=== PATIENT | male | born 1990 | race Caucasian/White ===

== ENCOUNTER 2020-12-28 20:05 | Inpatient (IN) | payer BC ==
[2020-12-28] MEDS ORDERED: SODIUM CHLORIDE 0.9% 1,000 ML IV STA (20:22)
--- NOTE | 2020-12-28 20:22 | ED ---
Neuro HPI - General Chief Complaint: Neuro Symptoms/Deficit Stated Complaint: Confusion,Slurred Speech Time Seen by Provider: 12/28/20 20:21 Source: patient Mode of arrival: ambulatory Limitations: no limitations - History of Present Illness Is the patient presenting with stroke symptoms?: Yes Last Known Well Date: 12/27/20 Onset/Timin -: days(s) Initial Comments: Tomy is a 30-year-old male who presents the ER today via private vehicle for evaluation of confusion and speech difficulty. Patient reports that yesterday evening he was smoking marijuana which is typical for him, his marijuana that he buys from a dispensary it's actually a vague pain according to his . He began to feel very lightheaded and off. He felt very confused and scared didn't know was going on he lay down to sleep. He didn't feel well this morning he still felt like something was off so he did not go to work. 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 His symptoms didn't improve throughout the day so this evening his convinced him to go to urgent care where he was evaluated and advised that he needed to come to the hospital for further workup. Location: speech Associated Symptoms: confusion - Related Data Home Medications: Home Medications Medication Instructions Recorded Confirmed No Known Home Medications 12/28/20 12/28/20 Allergies/Adverse Reactions: Allergies Allergy/AdvReac Type Severity Reaction Status Date / Time No Known Allergies Allergy Verified 12/28/20 21:44 Review of Systems ROS Statement: Those systems with pertinent positive or pertinent negative responses have been documented in the HPI. ROS Other: All systems not noted in ROS Statement are negative. General Exam - General Exam Comments Initial Comments: Physical Exam GENERAL: Patient is well-developed and well-nourished. HENT: Normocephalic, Atraumatic. EYES: PERRL, EOMI PULMONARY: Unlabored respirations. No audible rales rhonchi or wheezing was noted. CARDIOVASCULAR: There is a regular rate and rhythm without any murmurs gallops or rubs. ABDOMEN: Soft and nontender with normal bowel sounds. SKIN: Skin is clear with no lesions or rashes and otherwise unremarkable. : Deferred NEUROLOGIC: Patient is alert and oriented x3. Patient able to state his full name, date and identify what hospital he is Cranial nerves II through XII are grossly intact Patient occasionally has delayed responses, he appears confused, frequently begins crying and appears frustrated Moving all extremities spontaneously MUSCULOSKELETAL: Normal extremities with adequate strength and full range of motion. No lower extremity swelling or edema. No calf tenderness. PSYCHIATRIC: Tearful Limitations: no limitations Stroke MDM - NIH Stroke Scale 1a. Level of Consciousness: (0) alert 1b. LOC Questions: (0) answers correctly 1c. LOC Commands: (0) performs tasks correctly 2. Best Gaze: (0) normal 3. Visual: (0) no visual loss 4. Facial Palsy: (0) normal symmetrical movement 5a. Motor Arm Left: (0) no drift 5b. Motor Arm Right: (0) no drift 6a. Motor Leg Left: (0) no drift 6b. Motor Leg Right: (0) no drift 7. Limb Ataxia: (0) absent 8. Sensory: (0) normal 9. Best Language: (0) no aphasia 10. Dysarthria: (0) normal 11. Extinction/Inattention: (0) no abnormality - Thrombolytic Inclusion/Exclusion Thrombolytic Exclusion Criteria: Symptom Onset > 4.5 Hours - Medical Decision Making Tomy is a 30-year-old male who presents to the ER today via private vehicle for evaluation of confusion not feeling right feeling lightheaded and off. Began yesterday. Patient reports it began in the evening after smoking marijuana however his mom reports that she felt he was feeling this way when she saw him at 4:30 PM yesterday. Patient's initial NIH is 0. He does sound as though he has a list at times but at times his speech is completely clear. All assessment of his speech is limited by the fact the patient continuously begins crying and is quite upset and emotional periods very clearly scared that he is here. Workup was initiated however symptoms of present for a minimum of 24 hours therefore culture was not activated Head CT is concerning for acute left-sided basal ganglia ischemic event, these results were discussed with neurologist Dr. Hampton who recommends aspirin admission CTA, MRI and echo Patient care was discussed with Dr. Cormier of [facility] who accepts the admission Past Medical History Past Medical History: No Reported History Past Surgical History: No Surgical Hx Reported Smoking Status: Never smoker Past Alcohol Use History: None Reported Past Drug Use History: Marijuana Course Vital Signs 12/28/20 12/28/20 12/28/20 20:10 20:30 21:00 Temperature 98.8 F Pulse Rate 91 98 89 Respiratory 19 18 18 Rate Blood Pressure 126/78 133/80 135/75 O2 Sat by Pulse 98 99 98 Oximetry 12/28/20 12/28/20 21:10 22:00 Temperature Pulse Rate 80 95 Respiratory 18 18 Rate Blood Pressure 133/77 125/87 O2 Sat by Pulse 98 99 Oximetry Critical Care Time Critical Care Time: Yes Total Critical Care Time: 30 Critical Care Time: Critical Care Time Critical care time was exclusive of separately billable procedures and treating other patients and teaching time. Critical care was necessary to treat or prevent imminent or life-threatening deterioration. Given the critical condition in which the patient arrived, the patient was immed iately assessed by myself and the nurse, and cardiac monitoring initiated due to the potential for rapid decompensation of the patient's clinical condition. During the course of the patients stay, I spent a considerable amount of time at the bedside performing serial re-evaluations of the patient's hemodynamic and clinical status because of the recognized potential threat to life or limb in this condition. I then had a chance to review not only all of the available current laboratory and radiographic studies obtained today, but I also reviewed old records available to me at the time. Additionally, any ancillary information available including outreach professional records were reviewed. Sequential vital signs were obtained. Disposition Clinical Impression: Acute stroke of basal ganglia Disposition: ADMITTED IP TO THIS HOSP Condition: Serious Is patient prescribed a controlled substance at d/c from ED?: No
--- NOTE | 2020-12-28 21:11 | CT ---
EXAMINATION TYPE: CT brain wo con DATE OF EXAM: 12/28/2020 COMPARISON: None INDICATION: CONFUSION AND NEURO DEFICIT DLP: 1102.4 mGycm, Automated exposure control for dose reduction was used. CONTRAST: None CT of the brain is performed utilizing 3 mm thick sections through the posterior fossa and 3 mm thick sections through the remaining calvarium. Study is performed within 24 hours of arrival to the hosp ital. No abnormal hyperdensity is present to suggest an acute intracranial hemorrhage. No mass lesion is evident. There is ill-defined hypodensity within the left basal ganglion. An acute ischemic area may be presen t. Consider follow-up with MRI. There is some subtle hypodensity within the left parietal occipital j unction which could be some ischemic change as well., Series 2021, image 31. Ventricles and sulci are appropriate for the patient age. Paranasal sinuses and mastoid air cells within the [id number] are clear. IMPRESSIONS: 1. Suspected acute ischemic change within the left basal ganglion. Consider follow-up with MRI. Rep ort was called to the emergency room Physician Dr Castanon by Dr. Sánchez by telephone at the time of interpretation 2105 hours 12/28/2020.
--- NOTE | 2020-12-28 21:13 | XR ---
EXAMINATION TYPE: XR chest 2V DATE OF EXAM: 12/28/2020 COMPARISON: None INDICATION: Altered mental status TECHNIQUE: Frontal and lateral views of the chest are obtained. FINDINGS: The heart size is normal. The pulmonary vasculature is normal. The lungs are clear. IMPRESSION: 1. No acute pulmonary process.
[2020-12-28] MEDS ORDERED: ASPIRIN 81 MG PO STA (21:23)
[2020-12-28] MEDS ORDERED: CLOPIDOGREL 75 MG TAB PO STA (21:23)
[2020-12-28] MEDS ORDERED: NALOXONE 0.4 MG/ML 1 ML VIAL IV PRN (22:02)
--- NOTE | 2020-12-29 00:46 | CT ---
EXAMINATION TYPE: CODE STROKE: CTA head neck DATE OF EXAM: 12/29/2020 COMPARISON: None HISTORY: acute stroke CT DLP: 926.3 mGycm Automated exposure control for dose reduction was used. CONTRAST: Performed with IV Contrast, patient injected with 65 mL of Isovue 370. Images obtained from the aortic arch to the vertex of the brain with IV contrast. There are 3-D post processed images. There is normal branching pattern of the great vessels on the aortic arch. There is bilateral arteria l flow in the subclavian arteries. Thyroid gland appears normal. There is arterial flow in the common internal and external carotid arteries bilaterally. There is wide patency of the carotid artery bifu rcations. There is wide patency of the vertebral arteries. There is no evidence of carotid or vertebr al artery aneurysm or dissection. There is arterial flow in the vertebrobasilar artery system. There is arterial flow in the anterior m iddle and posterior cerebral arteries. There is no evidence of intracranial aneurysm or neovascularit y. There is subtotal occlusion of the proximal left middle cerebral artery seen on image 17 of series 405. There is distal arterial flow in the branches of the left middle cerebral artery. This patient had head CT scan earlier today that shows 3 x 1.5 cm area of hypodensity in the left internal capsule consistent with acute infarct. IMPRESSION: Negative CT angiogram of the neck. There is subtotal occlusion and thrombosis of the proximal left middle cerebral artery. This appears to account for the evidence of acute infarct in the white matter left cerebral hemisphere.
--- NOTE | 2020-12-29 03:24 | P.HPIM ---
History of Present Illness H&P Date: 12/28/20 Chief Complaint: confusion 30 year old male with no significant past medical history patient comes in due to increase confusion , and speech difficulty off/on, patient did not look his normal self , and his was growing suspicious and decided to bring him in for evaluation . all started yesterday in the evening per his mother, when he seemed odd to them but they could not put a finger on it. at night yesterday , he smoked marijuana as he normally does most of the nights, and then was oddly increasingly sleepy and tired, for which he decided to go lay down. 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 eventually after he returned home, he was noted to be absent minded and acting confused wtih some word slurring and not making sense with unusual behavior, for which he was brought in for evaluation in the ED, CT of the head was performed and showed acute left sided ischemic stroke of basal ganglia. neurology notified and suggested to get MRI, CTA of head and neck and stroke workup, however, symptoms over 24 hours, and coded stroke was not activated. in the ED, patient was emotional with crying episodes. he did not complain of any weakness. during my interview he felt fine, but overwhelmed emotionally . he otherwise denies any focal deficits. he denies any medical problems in the past. he denies tobacco smokiing, or regular alcohol intake, he denies any illicit drugs, other than marijuana CTA of head and neck done after midnight, I paged neurology to go over results, which report showed subtotal occlusion and thrombosis of the proximal left middle cerebral artery, which accounts for the evidence of acute infarct in the white matter left cerebral hemisphere. patient otherwise claims to be in good health, never experienced anything similar, does not take any prescription medications, has never been diagnosed with any chronic medical condition Review of Systems Pertinent positives as noted in HPI. All other systems were reviewed and are negative Past Medical History Past Medical History: No Reported History Past Surgical History: No Surgical Hx Reported Smoking Status: Never smoker Past Alcohol Use History: None Reported Past Drug Use History: Marijuana - Past Family History Family Family Medical History: CVA/TIA Medications and Allergies Home Medications Medication Instructions Recorded Confirmed Type No Known Home Medications 12/28/20 12/28/20 History Allergies Allergy/AdvReac Type Severity Reaction Status Date / Time No Known Allergies Allergy Verified 12/28/20 21:44 Physical Exam Vitals: Vital Signs Temp Pulse Resp BP Pulse Ox 12/28/20 20:10 98.8 F 91 19 126/78 98 Intake and Output 12/28/20 12/28/20 12/28/20 06:59 14:59 22:59 Other: Weight 111.13 kg Constitutional: No acute distress, conversant, pleasant Eyes: Anicteric sclerae, moist conjunctiva, Pupils equal round reactive to light ENMT: NC/AT Oropharynx clear, no erythema, or exudates Neck: Supple, FROM, no masses, or JVD No carotid bruits No thyromegaly Lungs: Clear to auscultation Clear to percussion Normal respiratory effort, no accessory muscle use Cardiovascular: Heart regular in rate and rhythm, No murmurs, gallops, or rubs No peripheral edema Abdominal: Soft Nontender, no guarding, rebound or rigidity Abdomen moving with respiration Normoactive bowel sounds No hepatomegaly, No splenomegaly No palpable mass No abdominal wall hernia noted Skin: Normal temperature, tone, texture, turgor No induration No subcutaneous nodules No rash, lesions No ulcers Extremities: No digital cyanosis No clubbing Pedal pulses intact and symmetrical Radial pulses intact and symmetrical No calf tenderness Psychiatric: Alert and oriented to person, place and time Appropriate affect fair judgement Neuro Muscles Strength 5/5 in all 4 extremities Sensation to light touch grossly present throughout Cranial nerves II-XII grossly intact No focal sensory deficits Lymphatics: no palpable cervical or supraclavicular , or inguinal lymph nodes Assessment and Plan Assessment: Subacute Ischemic stroke of the left basal ganglia Neurology notified Follow-up MRI, CT angiogram head and neck Check lipid profile, thyroid function Check echocardiogram CT angiogram of the head and neck showed subtotal occlusion and thrombosis of the proximal left middle cerebral artery which appears to account for the ev idence of acute infarct in the white matter left cerebral hemisphere, paged neurology to discuss findings await callback Neurochecks Consult to physical therapy Monitor vital signs Aspirin and statin patient was given Plavix in the ED CODE STATUS: Full code DVT prophylaxis: Mechanical Discussed with: Patient, ER, RN Anticipated length of stay less than than [address]: Home A total of 65 minutes was spent on the care of this complex patient more than 50% of the time was spent in counseling and care coordination.
[2020-12-29] MEDS ORDERED: CLOPIDOGREL 75 MG TAB PO STA (03:30)
[2020-12-29] MEDS ORDERED: SODIUM CHLORIDE 0.9% 1,000 ML IV ONE (03:31)
[2020-12-29] MEDS: SODIUM CHLORIDE 0.9% 1,000 ML IV SCH ×3 (06:22→23:53)
[2020-12-29 07:30] LABS: Basophils % (A) 0 %; Eosinophils % (A) 1 %; HGB 12.1 gm/dL (13.0-17.5); Lymphocytes % (A) 21 %; MCH 32.6 pg (25.0-35.0); MCHC 34.5 g/dL (31.0-37.0); MCV 94.7 fL (80.0-100.0); Mean Platelet Volume 7.2; Monocytes # (A) 0.3 k/uL (0-1.0); Monocytes % (A) 7 %; Neutrophils # (A) 3.3 k/uL (1.3-7.7); Neutrophils % (A) 70 %; Platelet Count 218 k/uL (150-450); RDW 12.8 % (11.5-15.5); WBC 4.7 k/uL (3.8-10.6)
[2020-12-29 07:41] LABS: Partial Thromboplastin Time 24.4 sec (22.0-30.0); Prothrombin Time 10.7 sec (9.0-12.0)
[2020-12-29 08:32] LABS: Appearance,Urine Clear (Clear); Bilirubin,Urine Negative (Negative); Blood,Urine Negative (Negative); Color,Urine Yellow; Glucose,Urine (UA) Negative (Negative); Ketones,Urine Negative (Negative); Leukocyte Esterase,Urine Negative (Negative); Nitrite,Urine Negative (Negative); PH, Urine 6.5 (5.0-8.0); Protein,Urine Negative (Negative); Specific Gravity,Urine 1.022 (1.001-1.035); Urobilinogen,Urine <2.0 mg/dL (<2.0)
[2020-12-29 08:44] LABS: Urn Cannabinoid Scrn Detected (NotDetected)
[2020-12-29 08:45] LABS: Amphetamine Screen,Urine Detected (NotDetected); Barbiturate Screen,Urine Not Detected (NotDetected); Benzodiazepines Screen,Urine Not Detected (NotDetected); Cocaine Screen,Urine Not Detected (NotDetected); Methadone Screen, Urine Not Detected (NotDetected); Opiate Screen,Urine Not Detected (NotDetected); Oxycodone Screen, Urine Not Detected (NotDetected); Phencyclidine Screen,Urine Not Detected (NotDetected); Tricyclic Antidepressant,Urine Not Detected (NotDetected)
[2020-12-29] MEDS ORDERED: ATORVASTATIN 40 MG TAB PO SCH (09:00)
--- NOTE | 2020-12-29 10:00 | ECHOF ---
Referral Reason:acute stroke MEASUREMENTS -------- HEIGHT: 182.9 cm WEIGHT: 111.1 kg BP: 112/63 RVIDd: 3.6 cm (< 3.3) IVSd: 1.1 cm (0.6 - 1.1) LVIDd: 5.0 cm (3.9 - 5.3) LVPWd: 1.1 cm (0.6 - 1.1) IVSs: 1.4 cm LVIDs: 3.3 cm LVPWs: 1.9 cm LA Diam: 3.6 cm (2.7 - 3.8) LAESV Index (A-L): 21.39 ml/m Ao Diam: 3.5 cm (2.0 - 3.7) AV Cusp: 2.5 cm (1.5 - 2.6) MV EXCURSION: 17.701 mm (> 18.000) MV EF SLOPE: 134 mm/s (70 - 150) EPSS: 0.3 cm MV E Oj: 0.93 m/s MV DecT: 234 ms MV A Oj: 0.65 m/s MV E/A Ratio: 1.42 RAP: 5.00 mmHg RVSP: 20.59 mmHg FINDINGS -------- Sinus rhythm. This was a technically adequate study. The left ventricular size is normal. There is borderline concentric left ventricular hypertrophy. Overall left ventricular systolic function is normal with, an EF between 60 - 65 %. The right ventricle is mildly enlarged. Normal LA size by volume 22+/-6 ml/m2. The right atrium is normal in size. Interatrial and interventricular septum intact. The aortic valve is trileaflet, and appears structurally normal. No aortic stenosis or regurgitation. The mitral valve is normal. Trace tricuspid regurgitation present. Right ventricular systolic pressure is normal at < 35 mmHg. Trace/mild (physiologic) pulmonic regurgitation. The aortic root size is normal. Normal inferior vena cava with normal inspiratory collapse consistent with estimated right atrial pre ssure of 5 mmHg. There is no pericardial effusion. CONCLUSIONS -------- 1. The left ventricular size is normal. 2. There is borderline concentric left ventricular hypertrophy. 3. Overall left ventricular systolic function is normal with, an EF between 60 - 65 %. 4. The right ventricle is mildly enlarged. 5. The aortic valve is trileaflet, and appears structurally normal. No aortic stenosis or regurgitati on. 6. Trace tricuspid regurgitation present. 7. Trace/mild (physiologic) pulmonic regurgitation. 8. There is no pericardial effusion. WORKERS' COMPENSATION CLAIMS EXAMINER: Miley Gil RDCS
[2020-12-29 10:54] LABS: ALT 46 U/L (4-49); AST 31 U/L (17-59); African American GFR (CKD) >90 (>60 ml/min/1.73 sqM); Albumin 4.3 g/dL (3.5-5.0); Alkaline Phosphatase 67 U/L (38-126); Anion Gap 6 mmol/L; Blood Urea Nitrogen 11 mg/dL (9-20); Calcium 9.5 mg/dL (8.4-10.2); Carbon Dioxide 27 mmol/L (22-30); Chloride 105 mmol/L (98-107); Glucose 116 mg/dL (74-99); Non-African American GFR(CKD) >90 (>60 ml/min/1.73 sqM); Potassium 4.3 mmol/L (3.5-5.1); Sodium 138 mmol/L (137-145); Total Bilirubin 1.4 mg/dL (0.2-1.3)
[2020-12-29] MEDS: CLOPIDOGREL 75 MG TAB PO SCH (11:21)
[2020-12-29] MEDS: ASPIRIN 81 MG PO SCH (11:21)
--- NOTE | 2020-12-29 11:55 | P.CNNES ---
History of Present Illness Consult date: 12/29/20 Requesting physician: Gifty Castanon Reason for Consult: Acute stroke History of Present Illness: Patient is a 30-year-old right-hand dominant male came to the hospital yesterday at 8:05 PM, for evaluation of speech difficulty and possible stroke. Patient's symptoms started on the night prior on Friday night at 8:30 PM, when he felt ill, what he described as feeling weird. Patient thought that he may have smoked too much of marijuana therefore did not pay much attention. He went to sleep at night. At 4 AM he called his that he was locked out of his house which was unusual for him. Later during the day he was playing with his son and outside, but did not feel fine. He denied any problem with vision, headache, any numbness tingling weakness facial droopiness. He did notice that he was having trouble with the right hand while texting as compared to the left. There was no slurred speech. Late afternoon patient apparently broke up in tears, stating that he was having hard time talking. Patient's took him to urgent care at around 6 PM, where patient was noticed to be confused. Patient's was sitting outside in the lobby, and when he spoke to the physician, he did not know why he came to the urgent care. He states that he came for UTI, then states came for "Lux", which made no sense. He was recommended to go to the ER. In the ER patient was having difficulty finding the words at times. Patient's vitals on arrival blood pressure 126/78, pulse rate 91, temperature 98.8. Blood test shows normal WBC hemoglobin 12.1, platelets 218. PT/PTT, troponin normal. UA negative, urine drug screen positive for amphetamines and marijuana. Avila virus PCR negative. CT head showed suspected acute ischemic change within the left basal ganglion. Consider follow-up with MRI. Chest x- ray showed no acute process. EKG shows normal sinus rhythm, right axis deviatio n. Patient's NIH stroke scale in the ER was 0. ED staff discussed case with me. Patient was not a candidate for TPA, as his symptoms have been present for over 24 hours. CTA of head and neck was recommended. Aspirin and Plavix were recommended. CTA of the head and neck was performed shortly after midnight. It revealed subtotal occlusion and thrombosis of the proximal left middle cerebral artery. This appears to account for the evidence of acute infarct in the white matter left cerebral hemisphere. I was informed about report of CTA early this morning by Dr Freeman. Recommended to speak to neuro intervention if patient would be a candidate for thrombectomy. Apparently it was already discussed with neuro intervention and he was not considered a candidate for thrombectomy because of low NIH stroke scale. I suggested to further load with Plavix for total of 300 mg. Start normal saline at 100 mL per hour. Do not treat blood pressure, unless > 210/110. Also recommended neuro checks every 1 hour for the next 6 hours. This morning patient was seen along with his . She says that his speech has much improved. He is more fluent, does not have to think about the words. She feels that he still sometimes speaks slightly off. Patient denies hypertension diabetes or cholesterol issues. He does not take any medication at home. He does not smoke cigarettes. He smokes marijuana about 2 puffs every night. He sometimes uses Adderall 20 mg tablets, 3 of them together, which he gets from some friends prescription. He does not do any other drugs. Uses alcohol occasionally. Patient states that his maternal grandmother had strokes. Patient denies any recent head or neck injury the last 6 months. 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 Review of Systems As above in detail. Denies any chest pain shortness of breath wheezing or cough. Denies any double vision or loss of vision hoarseness, sore throat, dysphagia. No numbness tingling focal weakness. No problem with urination. He does have depression, stress a lot, since his [id number] committed suicide. Patient is very emotional at this time. Past Medical History Past Medical History: No Reported History Past Surgical History: No Surgical Hx Reported Smoking Status: Never smoker Past Alcohol Use History: None Reported Past Drug Use History: Marijuana - Past Family History Family Family Medical History: CVA/TIA Medications and Allergies Home Medications Medication Instructions Recorded Confirmed Type No Known Home Medications 12/28/20 12/28/20 History Allergies Allergy/AdvReac Type Severity Reaction Status Date / Time No Known Allergies Allergy Verified 12/28/20 21:44 Physical Examination - Vital Signs Vital Signs: Vital Signs Temp Pulse Resp BP Pulse Ox 12/29/20 07:34 98.3 F 82 18 127/75 99 12/29/20 06:28 98.2 F 69 18 112/63 98 12/29/20 05:30 71 18 98 12/29/20 03:45 98.0 F 61 18 129/74 99 12/29/20 02:00 76 18 99 12/29/20 00:58 86 18 120/64 98 12/29/20 00:00 83 18 98 12/28/20 23:00 86 18 116/76 98 12/28/20 22:00 95 18 125/87 99 12/28/20 21:10 80 18 133/77 98 12/28/20 21:00 89 18 135/75 98 12/28/20 20:30 98 18 133/80 99 12/28/20 20:10 98.8 F 91 19 126/78 98 Intake and Output 12/28/20 12/29/20 12/29/20 22:59 06:59 14:59 Other: # Voids 1 Weight 111.13 kg Patient is a young male, in no acute distress. He does have a slight flat affect. Appears somewhat stressed, and frequently gets emotional and cries and started sobbing. Patient is alert awake oriented to time place and person. Speech is mildly dysarthric and language functions are normal. He can name 4/4 objects presented, could repeat long sentences without hesitancy. He was able to read without difficulty. He was able to write at his baseline handwriting. He can calculate 100-7 and then 93-7 correctly. No finger agnosia. Attention, concentration and fund of knowledge is adequate. On cranial examination, pupils are round and reacting to light, visual ha are full on confrontation, with no neglect on double simultaneous stimulation. His extraocular muscles are intact with no nystagmus. Patient has very mild flattening of the right nasolabial fold, his tongue protrudes to the midline. Palatal elevation and sensation normal, hearing and shoulder shrug normal, facial sensation normal. Shoulder shrug normal. On muscle strength testing, there is no pronator drift and the strength is normal in arms and legs distally and proximally. Deep tendon reflexes are 2+ all over and plantars downgoing bilaterally. Sensory to touch is equal with no neglect on double simultaneous stimulation. Cerebellar function showed no ataxia for [id number] testing. No dysdiadochokinesia. Tone and bulk of muscles normal. Finger tapping appears equal bilaterally. Gait normal. On general examination, there is no carotid bruit or murmur, S1-S2 audible. Abdomen is soft nontender. Chest is clear. Peripheral pulses are present. No edema. Results - Laboratory Findings CBC and BMP: 12/29/20 07:00 12/29/20 10:21 Abnormal Lab Findings: Abnormal Labs 12/28/20 12/29/20 20:22 07:00 RBC 3.70 L Hgb 12.1 L Hct 35.0 L Ur Amphetamines Screen Detected H U Marijuana (THC) Screen Detected H Assessment and Plan Assessment: * Acute ischemic stroke involving left basal ganglia. CTA of the head revealed subtotal occlusion and thrombus in the left M1 segment. Patient's current NIH stroke scale is 2. Mechanism of stroke appears embolic, but no source identified yet. * Marijuana use, urine positive for amphetamines. Patient takes Adderall for recreational use sometimes. Uncertain if contributing to the stroke. Plan: * MRI of the brain to evaluate for acute stroke, MRA of the head to follow-up on the left MCA thrombus. * Do not treat blood pressure. His blood pressure has been running in the normal range. * Patient has received 225 mg of Plavix loading dose, and aspirin. Continue aspirin 81 mg and Plavix 75 mg. * Continue high-dose statins, with Lipitor 80 mg. * 2-D echo revealed normal left-ventricular size, borderline concentric LVH. EF is 60-65%. * Suggest cardiology consultation for EEG to rule out embolic source. * We will check hypercoagulable workup. * Case discussed with Dr. Matute. No indication for thrombectomy, as patient is doing well. * Continue neuro checks every 2 hours. * Telemetric monitoring showing normal sinus rhythm, bundle branch block. No arrhythmia. * Recommend abstain from marijuana and use of Adderall. * Dr. Monteiro Will resume neurology service in the morning. Time with Patient: Greater than 30
[2020-12-29] MEDS: ATORVASTATIN 80 MG TAB PO SCH (12:41)
--- NOTE | 2020-12-29 14:56 | P.PN ---
Subjective Progress Note Date: 12/29/20 Pt admitted for subacute ischemic stroke overnight. Case discussed between Neurology and Neuro-interventional, no indication for thrombectomy due to patient's low NIHSS score. Pt still has some slurring speech today, but otherwise, is 5/5 motor strength throughout. Pt is anxious and emotionally labile. Methamphetamine use was discussed and patient was counseled on cessation/use discouraged. Objective - Vital Signs Vital signs: Vital Signs Temp 98.8 F 12/29/20 12:00 Pulse 77 12/29/20 12:00 Resp 18 12/29/20 12:00 BP 131/72 12/29/20 12:00 Pulse Ox 97 12/29/20 12:00 Intake & Output 12/28/20 12/29/20 12/29/20 18:59 06:59 18:59 Intake Total 240 Balance 240 Weight 111.13 kg Intake: Oral 240 Other: # Voids 2 - Exam Gen: awake, alert HEENT: normocephalic, atraumatic, good hearing acuity, moist mucous membranes Resp: good air exchange, breathing comfortably with no accessory muscle use CVS: good distal perfusion x 4, GI: soft, NTTP, ND : no SPT, no CVAT, ramos catheter not present MSK: no pitting edema, no clubbing Neuro: Slurred speech, 5 out of 5 motor strength 5 extremities, mild facial droop on the left Psych: cooperative, labile mood - Labs CBC & Chem 7: 12/29/20 07:00 12/29/20 10:21 Labs: Abnormal Lab Results - Last 24 Hours (Table) 12/28/20 12/29/20 12/29/20 Range/Units 20:22 07:00 10:21 RBC 3.70 L (4.30-5.90) m/uL Hgb 12.1 L (13.0-17.5) gm/dL Hct 35.0 L (39.0-53.0) % Glucose 116 H (74-99) mg/dL Total Bilirubin 1.4 H (0.2-1.3) mg/dL Ur Amphetamines Screen Detected H (NotDetected) U Marijuana (THC) Screen Detected H (NotDetected) Assessment and Plan Assessment: Subacute ischemic stroke Methamphetamine abuse -Admit inpatient, telemetry -Neurology consult, appreciate recommendations -Cardiology consulted for KEON -MRI of the brain and MRA pending -Echo with appropriate ejection fraction, no evidence of left atrial or left ventricular thrombus, negative for PFO -TSH, A1c, lipid panel -Methamphetamine cessation counseling provided -Aspirin, Plavix, statin CODE STATUS: Full code DVT prophylaxis: Mechanical Anticipated length of stay less than than [address]: Home
[2020-12-29 21:56] LABS: Chol/HDL Ratio 5.56 Ratio; LDL Cholesterol,Calculated 150.7 mg/dL (0.0-131.0)
[2020-12-30] MEDS: SODIUM CHLORIDE 0.9% 1,000 ML IV SCH ×2 (05:19→08:56)
[2020-12-30] MEDS: ASPIRIN 81 MG PO SCH (08:53)
[2020-12-30] MEDS: CLOPIDOGREL 75 MG TAB PO SCH (08:53)
[2020-12-30] MEDS: ATORVASTATIN 80 MG TAB PO SCH (08:53)
[2020-12-30] MEDS ORDERED: ATORVASTATIN 80 MG TAB PO SCH ×2 (09:00→11:16)
--- NOTE | 2020-12-30 11:40 | MR ---
MRI brain without contrast, MR angiogram of the [facility] [place] history: Cerebrovascular accident, acute stroke, left MCA thrombus [id number] imaging obtained through the [facility] [place], 3-dimensional postprocessing performed. Multiplanar multisequence imaging through the brain, correlation with CTA 12/28/2020, CT brain MRI BRAIN: Restricted diffusion coincides with the previously identified abnormal low attenuation see n on CT within the internal capsule on the left, there is corresponding hyperintensity on inversion r ecovery and T2-weighted sequences, some local mass effect on the left lateral ventricle is minimal. T here is likely local gliosis. There is no hemorrhage or hydrocephalus. Cerebellopontine angles, corpu s callosum, pituitary, cervical medullary junction are within normal limits. Small lacunar infarct is chronic within the head of the caudate on the left. Orbits show symmetric appearance. Mild inflammat ory change present within the ethmoid air cells, mastoid air cells on the right. IMPRESSION: Cerebrovascular accident correlates with findings on CT from 2 days prior. [facility] [place] MRA: The findings of nonvisualization of the left cerebral artery are again noted. V ertebrobasilar system is patent, there is a fenestration present. No evident aneurysm. Middle cerebra l artery on the right is patent. IMPRESSION: Left middle cerebral artery occlusion as noted on CTA
--- NOTE | 2020-12-30 13:12 | P.CRDCN ---
History of Present Illness Consult date: 12/30/20 Reason for Consult (text): Acute CVA History of present illness: The patient is a 30-year-old male with no known past medical history, who prese nted to the hospital with new onset of aphasia. The patient states he is unable to speak, however did not lose any function of his arms or his legs. He had been having dizziness and lightheadedness and "just not feeling right" for 24 hours prior. He states he was not confused. On arrival to the emergency room, his initial NIH stroke scale was 0, however CT of the head was concerning for acute left-sided basal ganglia ischemic event, therefore stroke workup was completed. Confirmatory occlusion of left MCA via CTA of the head, brain MRI, and head MRA. The patient was interviewed and examined sitting comfortably in the bed with his at the bedside. We reviewed his hospital workup thus far in detail. At that time there were no results of the MRI and the MRA. We discussed the poss ibility of a PFO and that he will need to undergo a KEON in the near future. He became quite emotional at the time of my examination. He states he has been under increased stress as his [id number]-[id number] committed suicide earlier this year. He is very anxious about his stroke and concerned as he has a young child at home. He denies any recent COVID-19 infection or COVID-19 vaccination. DIAGNOSTICS: Brain CT suspected acute ischemic change and left basal ganglion CTA of head and not shows wide patency of carotid and vertebral arteries. Subtotal occlusion and thrombosis of proximal left MCA Brain MRI and MRA of the head also shows left MCA occlusion Echocardiogram reveals normal LV function without valvular abnormalities. Intra-atrial and intraventricular septum are intact, however no bubble study completed. Chest x-ray shows no acute pulmonary process EKG shows sinus mechanism Laboratory data: WBC 4.7, hemoglobin 12.1, platelet 218, sodium 138, potassium 4.3, BUN 11, creatinine 0.01, AST 31, ALT 46, troponins negative times 1, triglycerides 120, HDL 38, LDL 150, urine positive for amphetamines and marijuana. PAST MEDICAL HISTORY: No known past medical history, no routine follow-up since his early 20s REVIEW OF SYSTEMS: No fever or chills. No cough or expectoration. No diapho resis. Patient denies headache, dizziness, blurred vision, double vision. Patient denies any stomach discomfort. No nausea, vomiting. No hematochezia. No hematemesis. Denies any black stools or blood in his stools. Denies dysuria or hematuria. No muscle weakness or numbness. No chest pain or chest pressure. No dyspnea or orthopnea. PHYSICAL EXAMINATION: This is a 30-year-old obese male in no apparent distress at the time of my examination. HEENT: Head is atraumatic, normocephalic. Pupils are equal, round. Sclerae anicteric. Conjunctivae are clear. Mucous membranes of the mouth are moist. Neck is supple. There is no jugular venous distention. No carotid bruit is heard. CHEST EXAMINATION: Lungs are clear to auscultation. No chest wall tenderness is noted on palpation or with deep breathing. HEART EXAMINATION: Heart regular rate and rhythm. S1, S2 heard. No murmurs, gallops or rub. ABDOMEN: Soft, nontender. Bowel sounds are heard. No organomegaly noted. EXTREMITIES: 2+ peripheral pulses with no evidence of peripheral edema and no calf tenderness noted. No xanthomas. NEUROLOGIC EXAMINATION: Patient is awake, alert and oriented x3. FINAL ASSESSMENT AND PLAN: Acute CVA, occlusion of left MCA Aphasia, secondary to acute stroke, improved Dyslipidemia, LDL 150, start statin therapy Obesity, BMI 34 History of marijuana use PLAN: Recommend statin therapy Lipid particle testing Continue dual antiplatelet therapy as recommended by neurology Recommend Heme/Onc consult Proceed with KEON on Friday with Dr Villegas Further recommendations based upon clinical course The patient has been seen and evaluated. Plan of care has been reviewed and agreed upon by Dr Esparza. Past Medical History Past Medical History: No Reported History History of Any Multi-Drug Resistant Organisms: None Reported Past Surgical History: No Surgical Hx Reported Smoking Status: Never smoker Past Alcohol Use History: None Reported Past Drug Use History: Marijuana - Past Family History Family Family Medical History: CVA/TIA Medications and Allergies Home Medications Medication Instructions Recorded Confirmed Type No Known Home Medications 12/28/20 12/28/20 History Allergies Allergy/AdvReac Type Severity Reaction Status Date / Time No Known Allergies Allergy Verified 12/28/20 21:44 Physical Exam Vitals: Vital Signs Temp Pulse Resp BP Pulse Ox 12/30/20 11:06 69 18 12/30/20 10:55 98.4 F 69 18 129/77 97 12/30/20 08:56 97.8 F 81 18 131/73 98 12/30/20 04:00 97.7 F 57 L 16 141/66 12/30/20 00:00 97.6 F 62 16 121/73 96 12/29/20 19:38 98.7 F 71 16 130/77 97 12/29/20 16:00 85 16 126/75 96 12/29/20 14:00 18 Intake and Output 12/29/20 12/30/20 12/30/20 22:59 06:59 14:59 Intake Total 720 Balance 720 Intake: Intake, IV Titration 600 Amount Sodium Chloride 0.9% 1, 600 000 ml @ 150 mls/hr IV . Q6H40M [facility] Rx#:[id number] Oral 120 Other: Voiding Method Toilet Urinal # Voids 1 1 2 Weight 114.4 kg Results 12/29/20 07:00 12/29/20 10:21 Lipids 12/29/20 Range/Units 10: Triglycerides 120.00 (0.00-149.00) mg/dL Cholesterol 213.00 H (0.00-200.00) mg/dL HDL Cholesterol 38.30 L (40.00-60.00) mg/dL Cholesterol/HDL Ratio 5.56 Ratio Current Medications Generic Name Dose Route Start Last Admin Trade Name Freq PRN Reason Stop Dose Admin Aspirin 81 mg 12/29/20 09:00 12/30/20 08:53 Aspirin 81 Mg PO 81 mg DAILY [facility] Administration Atorvastatin Calcium 80 mg 12/29/20 11:41 12/30/20 08:53 Atorvastatin 80 Mg Tab PO 80 mg DAILY [facility] Administration Clopidogrel Bisulfate 75 mg 12/29/20 09:00 12/30/20 08:53 Clopidogrel 75 Mg Tab PO 75 mg DAILY [facility] Administration Naloxone HCl 0.2 mg 12/28/20 22:02 Naloxone 0.4 Mg/Ml 1 Ml Vial IV Q2M PRN Opioid Reversal Intake and Output 12/29/20 12/30/20 12/30/20 22:59 06:59 14:59 Intake Total 720 Balance 720 Intake: Intake, IV Titration 600 Amount Sodium Chloride 0.9% 1, 600 000 ml @ 150 mls/hr IV . Q6H40M [facility] Rx#:[id number] Oral 120 Other: Voiding Method Toilet Urinal # Voids 1 1 2 Weight 114.4 kg 12/29/20 07:00 12/29/20 10:21
--- NOTE | 2020-12-30 15:07 | P.PN ---
Subjective Progress Note Date: 12/30/20 No new complaints today. Pending KEON on friday with cardiology. Objective - Vital Signs Vital signs: Vital Signs Temp 98.4 F 12/30/20 10:55 Pulse 69 12/30/20 11:06 Resp 18 12/30/20 11:06 BP 129/77 12/30/20 10:55 Pulse Ox 97 12/30/20 10:55 Intake & Output 12/29/20 12/30/20 12/30/20 18:59 06:59 18:59 Intake Total 240 720 Balance 240 720 Weight 114.4 kg Intake: Intake, IV Titration 600 Amount Sodium Chloride 0.9% 1, 600 000 ml @ 150 mls/hr IV . Q6H40M [facility] Rx#:[id number] Oral 240 120 Other: Voiding Method Toilet Urinal # Voids 2 1 2 - Exam Gen: awake, alert HEENT: normocephalic, atraumatic, good hearing acuity, moist mucous membranes Resp: good air exchange, breathing comfortably with no accessory muscle use CVS: good distal perfusion x 4, GI: soft, NTTP, ND : no SPT, no CVAT, ramos catheter not present MSK: no pitting edema, no clubbing Neuro: Slurred speech, 5 out of 5 motor strength 5 extremities, mild facial droop on the left Psych: cooperative, labile mood - Labs CBC & Chem 7: 12/29/20 07:00 12/29/20 10:21 Labs: Abnormal Lab Results - Last 24 Hours (Table) 12/29/20 Range/Units 10: Cholesterol 213.00 H (0.00-200.00) mg/dL LDL Cholesterol, Calc 150.7 H (0.0-131.0) mg/dL HDL Cholesterol 38.30 L (40.00-60.00) mg/dL Assessment and Plan Assessment: Subacute ischemic stroke Methamphetamine abuse -Admit inpatient, telemetry -Neurology consult, appreciate recommendations -Cardiology consulted for KEON -MRI of the brain and MRA confirm left MCA occlusion -Echo with appropriate ejection fraction, no evidence of left atrial or left ventricular thrombus, negative for PFO -TSH, A1c, lipid panel = hyperlipidemia, LDL is 150 -Methamphetamine cessation counseling provided -Aspirin, Plavix, statin CODE STATUS: Full code DVT prophylaxis: Mechanical Anticipated length of stay less than than [address]: Home
--- NOTE | 2020-12-30 17:51 | P.PN ---
Subjective Progress Note Date: 12/30/20 The patient is a 30-year-old male who is seen in neurologic follow-up on December 30, 2020, via telemedicine. The patient's is present in the room at the time of the evaluation. The patient himself feels that his speech is markedly improved. His agrees with this. Patient denies headache, difficulty swallowing, paresthesias and weakness in extremities. Chart is reviewed, specifically neurology consultation and history and physical. CT and CT angiogram are reviewed. MRI of brain and MRA are reviewed. Objective - Vital Signs Vital signs: Vital Signs Temp 98.2 F 12/30/20 16:33 Pulse 78 12/30/20 16:33 Resp 18 12/30/20 16:33 BP 128/90 12/30/20 16:33 Pulse Ox 98 12/30/20 16:33 Intake & Output 12/29/20 12/30/20 12/30/20 18:59 06:59 18:59 Intake Total 240 840 Balance 240 840 Weight 114.4 kg Intake: Intake, IV Titration 600 Amount Sodium Chloride 0.9% 1, 600 000 ml @ 150 mls/hr IV . Q6H40M [facility] Rx#:[id number] Oral 240 240 Other: Voiding Method Toilet Urinal # Voids 2 1 2 - Exam Gen.: The patient is reclining in the bed. He is well-nourished, well-developed and in no acute distress. HEENT: Head is atraumatic, normocephalic. Fundus not visualized. There is no scleral icterus. Mucous membranes are moist. Neurological examination Mental status: Patient is awake, alert and oriented 3. His speech is clear. There is no dysarthria or aphasia. The patient has no difficulty naming objects. He is able to accurately repeat phrases. There is no right left confusion. The patient easily follows two-step commands. Cranial nerves: 2-12 intact as tested Motor: Strength is 5/5 throughout - Labs CBC & Chem 7: 12/29/20 07:00 12/29/20 10: Labs: Abnormal Lab Results - Last 24 Hours (Table) 12/29/20 Range/Units 10: Cholesterol 213.00 H (0.00-200.00) mg/dL LDL Cholesterol, Calc 150.7 H (0.0-131.0) mg/dL HDL Cholesterol 38.30 L (40.00-60.00) mg/dL Assessment and Plan Assessment: 1. Acute left basal ganglia infarct, current etiology is unknown. Must rule out cardiac embolism. Also must consider hypercoagulable state, once these etiologies are excluded then likely the patient's use of methamphetamines contributed to the stroke Plan: 1. Await KEON results 2. Advised patient to stop using Adderall and certainly any other recreational drugs should be avoided Time with Patient: Less than 30 (spent 20 minutes with patient via telemedicine)
[2020-12-31] MEDS: ATORVASTATIN 80 MG TAB PO SCH (09:00)
[2020-12-31] MEDS: ASPIRIN 81 MG PO SCH (09:00)
[2020-12-31] MEDS: CLOPIDOGREL 75 MG TAB PO SCH (09:00)
--- NOTE | 2020-12-31 13:15 | P.PN ---
Subjective Progress Note Date: 12/31/20 The patient was interviewed and examined sitting in the recliner chair. He states he had been doing well over the last 24 hours. He has no new complaints. No chest pain or chest pressure. No dyspnea, orthopnea, palpitations, dizziness, or lightheadedness. No neurological changes. Previously discussed plan of care was proceed with KEON Friday to rule out PFO. Continued hematological workup pending. GENERAL: Well-appearing, well-nourished and in no acute distress. NECK: Supple without JVD or thyromegaly. LUNGS: Breath sounds clear to auscultation bilaterally. Respiration equal and unlabored. No wheezes, rales or rhonchi. HEART: Regular rate and rhythm without murmurs, rubs or gallops. S1 and S2 heard. EXTREMITIES: Normal range of motion, no edema. No clubbing or cyanosis. Peripheral pulses intact and strong. VITALS: Blood pressure 121/74, SpO2 96% on room air, respiratory rate 18, pulse rate 75, temp 97.8F TELEMETRY: Sinus rhythm. No arrhythmias IMPRESSION: Acute CVA, occlusion of the left MCA Aphasia, secondary to acute stroke, improved Dyslipidemia, started on statin therapy, lipid particle testing outpatient Obesity, BMI 34 History of marijuana use, cessation advised PLAN: Nothing by mouth after midnight for KEON Friday with Dr. Villegas Outpatient follow-up with Dr. Esparza thereafter The patient has been seen and evaluated. Plan of care has been reviewed and agreed upon by Dr Esparza. Objective - Vital Signs Vital signs: Vital Signs Temp 97.8 F 12/31/20 12:14 Pulse 75 12/31/20 12:14 Resp 18 12/31/20 12:14 BP 121/74 12/31/20 12:14 Pulse Ox 96 12/31/20 12:14 Intake & Output 12/30/20 12/31/20 12/31/20 18:59 06:59 18:59 Intake Total 958 550 240 Balance 958 550 240 Weight 111.4 kg Intake: IV 10 Invasive Line 2 10 Intake, IV Titration 600 Amount Sodium Chloride 0.9% 1, 600 000 ml @ 150 mls/hr IV . Q6H40M DMITRI Rx#:[id number] Oral 358 540 240 Other: Voiding Method Toilet Toilet Toilet Urinal # Voids 2 1 - Labs CBC & Chem 7: 12/29/20 07:00 12/29/20 10:21
--- NOTE | 2020-12-31 14:13 | P.PN ---
Subjective Progress Note Date: 12/31/20 No new complaints today, pending KEON Objective - Vital Signs Vital signs: Vital Signs Temp 97.8 F 12/31/20 12:14 Pulse 75 12/31/20 12:14 Resp 18 12/31/20 12:14 BP 121/74 12/31/20 12:14 Pulse Ox 96 12/31/20 12:14 Intake & Output 12/30/20 12/31/20 12/31/20 18:59 06:59 18:59 Intake Total 958 550 240 Balance 958 550 240 Weight 111.4 kg Intake: IV 10 Invasive Line 2 10 Intake, IV Titration 600 Amount Sodium Chloride 0.9% 1, 600 000 ml @ 150 mls/hr IV . Q6H40M DMITRI Rx#:[id number] Oral 358 540 240 Other: Voiding Method Toilet Toilet Toilet Urinal # Voids 2 1 2 - Exam Gen: awake, alert HEENT: normocephalic, atraumatic, good hearing acuity, moist mucous membranes Resp: good air exchange, breathing comfortably with no accessory muscle use CVS: good distal perfusion x 4, GI: soft, NTTP, ND : no SPT, no CVAT, ramos catheter not present MSK: no pitting edema, no clubbing Neuro: Slurred speech, 5 out of 5 motor strength 5 extremities, mild facial droop on the left Psych: cooperative, labile mood - Labs CBC & Chem 7: 12/29/20 07:00 12/29/20 10:21 Assessment and Plan Assessment: Subacute ischemic stroke Methamphetamine abuse -Admit inpatient, telemetry -Neurology consult, appreciate recommendations -Cardiology consulted for KEON -MRI of the brain and MRA confirm left MCA occlusion -Echo with appropriate ejection fraction, no evidence of left atrial or left ventricular thrombus, negative for PFO -TSH, A1c, lipid panel = hyperlipidemia, LDL is 150 -Methamphetamine cessation counseling provided -Aspirin, Plavix, statin CODE STATUS: Full code DVT prophylaxis: Mechanical Anticipated length of stay less than than [address]: Home
[2021-01-01 09:34] VITALS: TEMP 98.2
[2021-01-01] MEDS ORDERED: fentaNYL (PF) 50 MCG/ML 2 ML AMP ONE (09:47)
[2021-01-01] MEDS ORDERED: SODIUM CHLORIDE 0.9% 500 ML 500 ML IV ONE (10:00)
[2021-01-01] MEDS ORDERED: fentaNYL (PF) 50 MCG/ML 2 ML AMP IV ONE (10:15)
[2021-01-01] MEDS ORDERED: BENZOCAINE SPRAY 1 CAN MUCOUS MEM ONE (10:15)
[2021-01-01] MEDS ORDERED: MIDAZOLAM 2 MG/2 ML VIAL IV ONE (10:15)
[2021-01-01 12:16] VITALS: BP 137/83; PULSE 94; RESP 16
[2021-01-01] MEDS: ASPIRIN 81 MG PO SCH (12:16)
[2021-01-01] MEDS: ATORVASTATIN 80 MG TAB PO SCH (12:16)
[2021-01-01] MEDS: CLOPIDOGREL 75 MG TAB PO SCH (12:16)
--- NOTE | 2021-01-01 13:22 | ECHOT ---
TRANSESOPHAGEAL ECHOCARDIOGRAM INDICATION: CVA PROCEDURE NOTE: After obtaining informed consent, transesophageal echocardiogram was performed in left lateral position using an Omniplane probe. Local and IV sedation were obtained using 2 mg of Versed and 25 mcg of fentanyl. The patient tolerated the procedure well without any obvious immediate complications. FINDINGS: 1. Left ventricular systolic function is normal. 2. Left atrium, right atrium, right ventricle seem within normal limits. 3. Mitral valve appears anatomically normal. There is trace mitral regurgitation noted. Tricuspid valve shows mild tricuspid regurgitation. 4. Aorta is free of aneurysm or significant atherosclerosis. 5. Left atrial appendage: There is no thrombus. 6. Interatrial septum: There is lipomatous hypertrophy noted. I do not see any shunting from right to left with agitated saline contrast study. We performed the test twice, and even with Valsalva maneuver and pressure, we do not see any bubbles across the septum. There is an eccentric jet of abnormal color flow within the right atrium, the exact significance of which is unclear. I do not see a clear-cut atrial septal defect on 2-D images. CONCLUSIONS: 1. No evidence of intracardiac thrombus. 2. No evidence of [id number] shunt by agitated saline contrast study. 3. Normal LV function. 4. Aorta appears normal. 5. There is no clear-cut evidence of [id number] shunt. There is lipomatous hypertrophy noted. There is an eccentric jet of color flow noted within the right atrium, the exact significance of which is unclear. MMODL / IJN: [id number] /
[2021-01-01 13:52] LABS: APTT 41 Sec(s) (<43); Dilute Russell Viper Venom 44 Sec(s) (<44)
--- NOTE | 2021-01-01 15:31 | P.DS ---
Providers Date of admission: 12/28/20 22:02 Expected date of discharge: 01/01/21 Attending physician: Eamon Freeman MD Consults: 12/28/20 22:02 Consult Physician Stat Consulting Provider: Wendy Ramirez Consult Reason/Comments: acute stroke >24h ago Do you want consulting provider notified?: Already Contacted 12/29/20 14:50 Consult Physician Routine Consulting Provider: Bladimir Esparza Consult Reason/Comments: KEON for stroke in young patient Do you want consulting provider notified?: Yes Primary care physician: Stated None Hospital Course: Subacute ischemic stroke Methamphetamine abuse -Admitted inpatient, telemetry. Neurology consulted, recommended ASA, plavix for 21 days and hypercoagulable workup. Homocysteine normal. Cardiology consu lted for KEON, this was negative for shunt or thrombus. MRI Brain/MRA/CT Angio H/N all confirm occlusive MCA on the left. Methamphetamine cessation counseling provided. Pt discharged on ASA, Plavix, Statin. Pt to f/u with PCP and Neurology. Assessment: Gen: awake, alert HEENT: normocephalic, atraumatic, good hearing acuity, moist mucous membranes Resp: good air exchange, breathing comfortably with no accessory muscle use CVS: good distal perfusion x 4, GI: soft, NTTP, ND : no SPT, no CVAT, ramos catheter not present MSK: no pitting edema, no clubbing Neuro: Slurred speech, 5 out of 5 motor strength 5 extremities, mild facial droop on the left Psych: cooperative, labile mood Patient Condition at Discharge: Good Plan - Discharge Summary Discharge Rx Participant: No New Discharge Prescriptions: New Clopidogrel [Plavix] 75 mg PO DAILY #17 tab Aspirin 81 mg PO DAILY #30 tab Atorvastatin [Lipitor] 80 mg PO DAILY #30 tab Discharge Medication List Aspirin 81 mg PO DAILY #30 tab 01/01/21 [Rx] Atorvastatin [Lipitor] 80 mg PO DAILY #30 tab 01/01/21 [Rx] Clopidogrel [Plavix] 75 mg PO DAILY #17 tab 01/01/21 [Rx] Follow up Appointment(s)/Referral(s): Bladimir Esparza MD [STAFF PHYSICIAN] - 1 Week (Office will call to make follow up appointment. ) None,Stated [Primary Care Provider] - 1-2 days Patient Instructions/Handouts: Ischemic Stroke (DC) Activity/Diet/Wound Care/Special Instructions: CVA Call your physician with any worsening symptoms of stroke such as, increased weakness, new numbness or tingling, mental status changes, visual changes or new loss of sensation. Stroke prevention methods include lowering cholesterol, thinning your blood, preventing high blood pressure, keeping tight control of your diabetes, increasing exercise/activity, smoking cessation and alcohol cessation. Warning signs of a stroke: The word F.A.S.T can help you remember and recognize the signs of a stroke F= Face: One side of your face droops A=Arm: One arm starts to drop when raised, or loss of function on one side S=Speech: Speech that is slurred or abnormal T=Time: TIME IS BRAIN. A stroke is a medical emergency and a person that is having a stroke needs to be seen immediately. Early treatment can reduce the long-term effects of a stroke. Discharge Disposition: HOME SELF-CARE
[2021-01-01 19:48] LABS: Cardiolipin Ab IgG Interp NEGATIVE (NEGATIVE); Cardiolipin Ab IgM Interp NEGATIVE (NEGATIVE); Cardiolipin IgA Antibody <2.0 U/mL; Cardiolipin IgM Antibody <1.5 U/mL
[2021-01-02 10:08] LABS: Protein C (Activity) >150 % (71-138)
[2021-01-02 10:10] LABS: Anti-Thrombin III Activity 98 % (79-109)
== END 2021-01-01 12:35 | disposition home or self-care (01) | DRG 66 ==
LOC: EC 20:05 → 3SCARD 22:02
PROVIDERS: ADMIT Internal Medicine; ATTEND Internal Medicine
PROC: B246ZZ4 Ultrasonography of Right and Left Heart, Transesophageal (ICD-10-PCS; principal; 2020-12-25)
DX: I63.412 Cerebral infarction due to embolism of left middle cerebral artery (principal); E78.5 Hyperlipidemia, unspecified; E66.9 Obesity, unspecified; Z68.34 Body mass index [BMI] 34.0-34.9, adult; Z71.51 Drug abuse counseling and surveillance of drug abuser; F15.10 Other stimulant abuse, uncomplicated; R29.702 NIHSS score 2; R29.810 Facial weakness; R47.01 Aphasia; F12.90 Cannabis use, unspecified, uncomplicated; Z20.822 Contact with and (suspected) exposure to COVID-19
CPT/HCPCS: 70450; 70496; 70498; 70544; 70551; 71046; 80053; 80061; 80306; 81003; 81240; 81241; 81291; 83090; 84484; 85025; 85300; 85303; 85306; 85610; 85613; 85730; 86147; 87635; 93005; 93306; 93312; 93320; 93325; 96360; 99285

== ENCOUNTER → 2022-06-27 | Outpatient (CLI) | payer BC ==
--- NOTE | 2022-06-27 16:14 | MR ---
EXAMINATION TYPE: MR knee RT wo con DATE OF EXAM: 06/27/2022 COMPARISON: None HISTORY: Right knee pain x 1 year, no trauma. TECHNIQUE: Multiplanar, multisequence images of the knee is performed without IV contrast. FINDINGS: MEDIAL MENISCUS: Anterior and posterior horns are intact without tear. LATERAL MENISCUS: Anterior and posterior horns are intact without tear. There is fluid and increased signal posterior to the PCL which may reflect complex ganglion cyst measuring 3.3 x 0.7 cm. CRUCIATE LIGAMENTS: The anterior and posterior cruciate ligaments are intact and unremarkable. COLLATERAL LIGAMENTS: The medial collateral ligament and lateral collateral ligament complex are inta ct and unremarkable. EXTENSOR MECHANISM: Visualized quadriceps and patellar tendons are intact. EFFUSION: No significant suprapatellar joint effusion. POPLITEAL CYST: No popliteal/zavaleta cyst. TRICOMPARTMENT SPACES: Intact CARTILAGE: Intact BONE MARROW SIGNAL: No focal abnormal marrow signal is appreciated. OTHER: No additional significant abnormality is appreciated. IMPRESSION: 1.There is fluid and increased signal posterior to the PCL which may reflect complex ganglion cyst me asuring 3.3 x 0.7 cm.
== END | disposition home or self-care (01) ==
LOC: RADMRIMAIN 07:18
PROVIDERS: ATTEND Family Medicine
DX: M23.303 Other meniscus derangements, unspecified medial meniscus, right knee (principal)

== ENCOUNTER 2022-08-22 12:03 | Day surgery (SDC) | payer BC ==
[2022-08-20 16:03] VITALS: BMI 33.2
--- NOTE | 2022-08-22 02:24 | HP ---
HISTORY AND PHYSICAL DATE OF SCHEDULED SURGERY: 08/22/2022. HISTORY OF PRESENT ILLNESS: Tomy Wharton is a 32-year-old gentleman seen with progressive right knee pain. Options were discussed. He elected to proceed with right knee arthroscopy. Consent was obtained. PAST MEDICAL HISTORY: Noncontributory. PAST SURGICAL HISTORY: Noncontributory. DAILY MEDICATIONS: Aspirin. ALLERGIES: None. SOCIAL HISTORY: He denies tobacco use. PHYSICAL EVALUATION OF THE RIGHT KNEE: His range of motion is -130 degrees. Mild effusion. Tenderness to medial joint line. Positive medial Nitin's. Ligaments stable. Hip rotation without pain. Distal neurovascular exam is intact. RADIOGRAPHS: Radiographs of the right knee revealed no osseous abnormality. MRI right knee revealed complex ganglion cyst. IMPRESSION: Internal derangement of right knee with intra-articular ganglion cyst, possible meniscal tear. PLAN: Right knee arthroscopy with excision of ganglion cyst, possible partial medial meniscectomy and debridement. MMODL / IJN: [id number] /
[~2022-08-22 12:03] MED LIST: DEXAMETHASONE SOD PHOSPHATE 4 MG/ML 1 ML VIAL IV ONE; HYDROmorphone 0.5 MG/0.5 ML SYRINGE IVP PRN; LACTATED RINGERS 1,000 ML IV SCH; MIDAZOLAM 2 MG/2 ML VIAL IV PRN; ONDANSETRON 4 MG/2 ML VIAL IVP ONE; SCOPOLAMINE 1 MG/72 HR PATCH TRANSDERM ONE
[2022-08-22] MEDS ORDERED: LIDOCAINE 2% INJ 20 MG/ML (2 ML VIAL) ONE (13:36)
[2022-08-22] MEDS ORDERED: MIDAZOLAM 2 MG/2 ML VIAL ONE (13:36)
[2022-08-22] MEDS ORDERED: HYDROmorphone (PF) 1 MG/ML ONE (13:36)
[2022-08-22] MEDS ORDERED: PROPOFOL 10 MG/ML 20 ML VIAL IV ONE (13:36)
[2022-08-22] MEDS ORDERED: fentaNYL (PF) 50 MCG/ML 2 ML AMP ONE (13:36)
[2022-08-22] MEDS ORDERED: BUPIVACAINE (PF) 0.25% 30 ML VIAL SQ ONE ×2 (13:56→14:09)
[2022-08-22 14:25] VITALS: TEMP 96.9
--- NOTE | 2022-08-22 14:29 | P.OP ---
Date of Procedure: 08/22/22 Preoperative Diagnosis: Internal derangement right knee Postoperative Diagnosis: 1. Tear lateral meniscus right knee 2. Reactive synovitis medial, lateral and suprapatellar compartments right knee 3. 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 Arthroscopic partial lateral meniscectomy right knee 2. Arthroscopic partial synovectomy medial, lateral and suprapatellar compartments right knee 3. Arthroscopic chondroplasty lateral femoral condyle right knee Anesthesia: JEANETTEA, local Surgeon: Panchito Lassiter Estimated Blood Loss (ml): 7 Pathology: none sent Condition: stable Disposition: PACU Indications for Procedure: 32-year-old gentleman who was seen with progressive right knee pain. After having treatment options discussed, he elected to proceed with arthroscopy. Operative Findings: See description of procedure Description of Procedure: Patient was taken to the operative suite. Patient underwent a general anesthetic by the department of anesthesia. Patient was given preoperative antibiotics. The right lower extremity was placed in a well-padded arthroscopic leg lobato. The right leg was prepped and draped in the normal sterile orthopedic fashion. A lateral parapatellar and suprapatellar incision was made. Trochars were inserted. Arthroscopy was initiated. Suprapatellar pouch revealed diffuse thick reactive synovitis. The patellofemoral joint appeared to articulate congruently. There was no chondromalacia present. The scope was guided into the medial gutter. No loose bodies or plica were identified. The scope was then guided into the medial compartment. A medial parapatellar incision was made. Trocar inserted followed by probe. The medial meniscus was probed and was found to be stable. There was no significant chondromalacia present. There was some thick reactive synovitis anteriorly. I introduced a motorized shaver and performed a partial synovectomy. The shaver was removed. There was good decompression of the synovitis. Scope and probe were then guided into the intercondylar notch. Cruciates were identified, probed and found to be stable. The scope and probe were then guided into lateral compartment. There was a radial tear mid body lateral meniscus. There was a small area of grade 1 chondromalacia along the lateral femoral condyle with a small osteochondral flap tear present. There was thick reactive synovitis a nteriorly. I performed a partial lateral meniscectomy getting down to stable meniscal tissue. I performed a light chondroplasty of the lateral femoral condyle. I performed a partial synovectomy decompressing the thick reactive synovitis anteriorly. The residual meniscus was stable. The residual osteochondral surface was stable. There was good decompression of the synovitis. The scope was in guided back into the suprapatellar compartment. I introduced a motorized shaver into the suprapatellar compartment. I performed a partial synovectomy decompressing that the vast reactive synovitis. The shaver was removed. There was good decompression of the synovitis. I now took one more look around the entire knee. I did not see any evidence for an obvious intra-articular ganglion cyst. There was good decompression of the synovitis. There was no other abnormality. Instruments were now removed from the joint. The joint was infiltrated with .25% Marcaine. Steri-Strips were applied to the portal sites. Sterile dressings were applied. The patient was placed into a VALENTIN hose. No tourniquet was utilized. The patient was awakened, transferred to a bed and taken to recovery stable satisfactory condition.
[2022-08-22 15:25] VITALS: PULSE 77
[2022-08-22 15:46] VITALS: BP 132/83; RESP 14
== END 2022-08-22 16:14 | disposition home or self-care (01) ==
LOC: OR 12:03
PROVIDERS: ATTEND Orthopaedic Surgery
DX: S83.281A Other tear of lateral meniscus, current injury, right knee, initial encounter (principal); M94.261 Chondromalacia, right knee; M23.91 Unspecified internal derangement of right knee; M67.461 Ganglion, right knee; M65.861 Other synovitis and tenosynovitis, right lower leg; Z86.73 Personal history of transient ischemic attack (TIA), and cerebral infarction without residual deficits; Z79.82 Long term (current) use of aspirin
CPT/HCPCS: 29881; 29876; J2250; J1100; J0690; J2405; J3010; J1170; J2704; J2001

== ENCOUNTER 2023-03-30 04:23 | Emergency (ER) | payer BC ==
[2023-03-30 04:40] VITALS: RESP 18
[2023-03-30] MEDS ORDERED: ONDANSETRON 4 MG/2 ML VIAL IVP STA (04:46)
[2023-03-30] MEDS ORDERED: SODIUM CHLORIDE 0.9% 1,000 ML IV STA (04:46)
[2023-03-30] MEDS ORDERED: KETOROLAC 15 MG/ML 1 ML VIAL IVP STA (04:46)
[2023-03-30] MEDS ORDERED: HYDROmorphone 1 MG/ML 1 ML SYRINGE IVP STA ×2 (04:46→07:28)
[2023-03-30 05:07] LABS: Basophils % (A) 0 %; Eosinophils % (A) 0 %; HCT 44.5 % (39.0-53.0); HGB 15.5 gm/dL (13.0-17.5); Lymphocytes % (A) 10 %; MCH 31.7 pg (25.0-35.0); MCHC 34.8 g/dL (31.0-37.0); MCV 91.1 fL (80.0-100.0); Mean Platelet Volume 7.2; Monocytes # (A) 0.3 k/uL (0-1.0); Monocytes % (A) 3 %; Neutrophils # (A) 8.5 k/uL (1.3-7.7); Neutrophils % (A) 85 %; Platelet Count 290 k/uL (150-450); RBC 4.89 m/uL (4.30-5.90); RDW 12.4 % (11.5-15.5)
[2023-03-30 05:16] LABS: AST 34 U/L (17-59); African American GFR (CKD) >90 (>60 ml/min/1.73 sqM); Alkaline Phosphatase 70 U/L (38-126); Amylase 47 U/L (30-110); Blood Urea Nitrogen 16 mg/dL (9-20); Carbon Dioxide 26 mmol/L (22-30); Glucose 143 mg/dL (74-99); Lipase 57 U/L (23-300); Non-African American GFR(CKD) >90 (>60 ml/min/1.73 sqM); Total Bilirubin 0.8 mg/dL (0.2-1.3); Total Protein 7.9 g/dL (6.3-8.2)
[2023-03-30 05:30] LABS: ALT 56 U/L (4-49); Anion Gap 15 mmol/L; Calcium 10.2 mg/dL (8.4-10.2); Chloride 102 mmol/L (98-107); Potassium 4.6 mmol/L (3.5-5.1); Sodium 143 mmol/L (137-145)
--- NOTE | 2023-03-30 05:43 | ED ---
Abdominal Pain HPI <Rafael Hammond - Last Filed: 03/30/23 10:36> - General Source: patient, RN notes reviewed, old records reviewed Mode of arrival: ambulatory Limitations: no limitations - History of Present Illness MD Complaint: abdominal pain -: hour(s) (4) Radiation: RUQ Migration to: epigastric Severity: severe Severity scale (1-10): 9 Quality: stabbing Consistency: constant Improves With: nothing Worsens With: nothing <Rafael Paz - Last Filed: 04/07/23 21:34> - General Chief Complaint: Abdominal Pain Stated Complaint: Abd pain Time Seen by Provider: 03/30/23 04:37 - History of Present Illness Initial Comments: This is a 32-year-old male to the emergency department for evaluation severe abdominal pain with right upper quadrant abdominal pain a. Patient presents today for evaluation of severe abdominal pain sudden onset of right leg and epigastric abdominal pain starting at 60 midnight last night. Patient states he cannot sleep and comes DF for evaluation. Patient is in severe pain distress here in the area positive nausea without active vomiting. No recent illnesses no recent fevers no other complaints (Rafael Paz) - Related Data Previous Rx's Medication Instructions Recorded Aspirin 81 mg PO DAILY #30 tab 01/01/21 HYDROcodone/APAP 5-325MG [[place] 1 tab PO Q6HR PRN #12 tab 08/22/22 5-325] Ketorolac [Toradol] 10 mg PO Q6HR #15 tab 03/30/23 Allergies Allergy/AdvReac Type Severity Reaction Status Date / Time No Known Allergies Allergy Verified 03/30/23 04:26 Review of Systems ROS Other: All systems not noted in ROS Statement are negative. <Rafael Hammond - Last Filed: 03/30/23 10:36> ROS Other: All systems not noted in ROS Statement are negative. <Rafael Paz - Last Filed: 04/07/23 21:34> ROS Statement: Those systems with pertinent positive or pertinent negative responses have been documented in the HPI. 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, History of Any Multi-Drug Resistant Organisms: None Reported Past Surgical History: No Surgical Hx Reported Additional Past Surgical History / Comment(s): KEON, Past Anesthesia/Blood Transfusion Reactions: No Reported Reaction Past Psychological History: No Psychological Hx Reported Smoking Status: Never smoker Past Alcohol Use History: None Reported Past Drug Use History: None Reported - Past Family History Mother Family Medical History: No Reported History Family Family Medical History: CVA/TIA <Rafael Paz - Last Filed: 04/07/23 21:34> General Exam Limitations: no limitations General appearance: alert, in no apparent distress, anxious, in distress Head exam: Present: atraumatic, normocephalic, normal inspection Eye exam: Present: normal appearance, PERRL, EOMI. Absent: scleral icterus, conjunctival injection, periorbital swelling ENT exam: Present: normal exam, mucous membranes moist Neck exam: Present: normal inspection. Absent: tenderness, meningismus, lymphadenopathy Respiratory exam: Present: normal lung sounds bilaterally. Absent: respiratory distress, wheezes, rales, rhonchi, stridor Cardiovascular Exam: Present: regular rate, normal rhythm, normal heart sounds. Absent: systolic murmur, diastolic murmur, rubs, gallop, clicks GI/Abdominal exam: Present: soft, normal bowel sounds. Absent: distended, tenderness, guarding, rebound, rigid Extremities exam: Present: normal inspection, full ROM, normal capillary refill. Absent: tenderness, pedal edema, joint swelling, calf tenderness Back exam: Present: normal inspection Neurological exam: Present: alert, oriented X3, CN II-XII intact Psychiatric exam: Present: normal affect, normal mood Skin exam: Present: warm, dry, intact, normal color. Absent: rash <Rafael Paz - Last Filed: 04/07/23 21:34> Course <Rafael Paz - Last Filed: 04/07/23 21:34> Vital Signs 03/30/23 03/30/23 03/30/23 04:26 08:09 10:46 Temperature 98.2 F 97.9 F 98.7 F Pulse Rate 79 88 87 Respiratory 18 18 18 Rate Blood Pressure 151/86 152/88 127/80 O2 Sat by Pulse 98 99 99 Oximetry - Reevaluation(s) Reevaluation #1: 03/30/23 05:43 Records reviewed (Rafael Paz) Reevaluation #2: 03/30/23 06:57 This pain is improved (Rafael Paz) Reevaluation #3: Patient is informed of results and questions answered (Rafael Paz) Reevaluation #4: 03/30/23 06:57 Was pt. sent in by a medical professional or institution (, [facility], [facility], urgent care, hospital, or jail...) When possible be specific @ -no Did you speak to anyone other than the patient for history (EMS, parent, family, police, friend...)? What history was obtained from this source @ -no Did you review nursing and triage notes (agree or disagree)? Why? @ -agree Are old charts reviewed (outside hosp., previous admission, EMS record, old EKG, old radiological studies, urgent care reports/EKG's, jail records)? Report findings @ -yes Differential Diagnosis (chest pain, altered mental status, abdominal pain women, abdominal pain men, vaginal bleeding, weakness, fever, dyspnea, syncope, headache, dizziness, GI bleed, back pain, seizure, CVA, palpatations, mental health, musculoskeletal)? @ -prior EKG interpreted by me (3pts min.). @ -no X-rays interpreted by me (1pt min.). @ -no CT interpreted by me (1pt min.). @ -Yes negative for acute disease U/S interpreted by me (1pt. min.). @ -yes negative for acute disease What testing was considered but not performed or refused? (CT, X-rays, U/S, labs)? Why? @ -none What meds were considered but not given or refused? Why? @ -none Did you discuss the management of the patient with other professionals (professionals i.e. , [facility], [facility], lab, RT, psych nurse, social science teacher, dog day care attendant, teacher, collection officer, case loader operator)? Give summary @ -no Was smoking cessation discussed for >3mins.? @ -no Was critical care preformed (if so, how long)? @ -no Were there social determinants of health that impacted care today? How? (Homelessness, low income, unemployed, alcoholism, drug addiction, transportation, low edu. Level, literacy, decrease access to med. care, prison, rehab)? @ -none Was there de-escalation of care discussed even if they declined (Discuss DNR or withdrawal of care, Hospice)? DNR status @ -no What co-morbidities impacted this encounter? (DM, HTN, Smoking, COPD, CAD, Cancer, CVA, ARF, Chemo, Hep., AIDS, mental health diagnosis, sleep apnea, morbid obesity)? @ -none Was patient admitted / discharged? Hospital course, mention meds given and route, prescriptions, significant lab abnormalities, going to OR and other perti nent info. @ - 29 female with abdominal pain, severe sudden onset of abdominal pain that woke him from sleep today kidney stone type pain but also febrile quadrant abdominal pain. Patient has negative imaging done here in the ER normal lab testing and feels improved. Patient can be discharged Discharge Undiagnosed new problem with uncertain prognosis? @ -no Drug Therapy requiring intensive monitoring for toxicity (Heparin, Nitro, Insulin, Cardizem)? @ -no Were any procedures done? @ -no Diagnosis/symptom? @ -Abdominal pain Acute, or Chronic, or Acute on Chronic? @ -Acute Uncomplicated (without systemic symptoms) or Complicated (systemic symptoms)? @ -Complicated Side effects of treatment? @ -no Exacerbation, Progression, or Severe Exacerbation? @ -exacerbation Poses a threat to life or bodily function? How? (Chest pain, USA, MD, pneumonia, PE, COPD, DKA, ARF, appy, cholecystitis, CVA, Diverticulitis, Homicidal, Suicidal, threat to staff... and all critical care pts) @ -no (Rafael Paz) Medical Decision Making - Lab Data Result diagrams: 03/30/23 04:48 03/30/23 04:48 <Rafael Hammond - Last Filed: 03/30/23 10:36> - Lab Data Result diagrams: 03/30/23 04:48 03/30/23 04:48 - Radiology Data Radiology results: report reviewed (CT of the abdomen and pelvis ultrasound gallbladder negative for acute disease), image reviewed <Rafael Paz - Last Filed: 04/07/23 21:34> - Medical Decision Making Was patient admitted / discharged? Hospital course, mention meds given and route, prescriptions, significant lab abnormalities, going to OR and other pertinent info. @ -Signed out to me by Dr. Paz at 7 AM. Patient's CAT scan showed hydronephrosis on the right side. Patient's SHOWED NO EXPLANATION FOR THE PATIENT'S PAIN. PATIENT DID AGAIN SHOW HYDRONEPHROSIS. I WILL BACK TWICE TO SEE THE PATIENT AND HE WAS COMFORTABLE BOTH TIMES. I SPOKE WITH UROLOGY AND THEY WANTED ALL UP THE PATIENT AN OUTPATIENT. Undiagnosed new problem with uncertain prognosis? @ -No Drug Therapy requiring intensive monitoring for toxicity (Heparin, Nitro, Insulin, Cardizem)? @ -No Were any procedures done? @ -No Diagnosis/symptom? @ -Hydronephrosis Acute, or Chronic, or Acute on Chronic? @ -Acute Uncomplicated (without systemic symptoms) or Complicated (systemic symptoms)? @ -Complicated Side effects of treatment? @ -No Exacerbation, Progression, or Severe Exacerbation? @ -No Poses a threat to life or bodily function? How? (Chest pain, USA, MD, pneumonia, PE, COPD, DKA, ARF, appy, cholecystitis, CVA, Diverticulitis, Homicidal, S uicidal, threat to staff... and all critical care pts) @ -No (Rafael Hammond) 32 male to the emergency room for evaluation today. Patient states he's curr ently couple, pain is controlled. Patient can be discharged home (Rafael Paz) - Lab Data Lab Results 03/30/23 03/30/23 03/30/23 Range/Units 04:48 04:48 09:24 WBC 10.0 (3.8-10.6) k/uL RBC 4.89 (4.30-5.90) m/uL Hgb 15.5 (13.0-17.5) gm/dL Hct 44.5 (39.0-53.0) % MCV 91.1 (80.0-100.0) fL MCH 31.7 (25.0-35.0) pg MCHC 34.8 (31.0-37.0) g/dL RDW 12.4 (11.5-15.5) % Plt Count 290 (150-450) k/uL MPV 7.2 Neutrophils % 85 % Lymphocytes % 10 % Monocytes % 3 % Eosinophils % 0 % Basophils % 0 % Neutrophils # 8.5 H (1.3-7.7) k/uL Lymphocytes # 1.0 (1.0-4.8) k/uL Monocytes # 0.3 (0-1.0) k/uL Eosinophils # 0.0 (0-0.7) k/uL Basophils # 0.0 (0-0.2) k/uL Sodium 143 (137-145) mmol/L Potassium 4.6 (3.5-5.1) mmol/L Chloride 102 (98-107) mmol/L Carbon Dioxide 26 (22-30) mmol/L Anion Gap 15 mmol/L BUN 16 (9-20) mg/dL Creatinine 0.69 (0.66-1.25) mg/dL Est GFR (CKD-EPI)AfAm >90 (>60 ml/min/1.73 sqM) Est GFR (CKD-EPI)NonAf >90 (>60 ml/min/1.73 sqM) Glucose 143 H (74-99) mg/dL Calcium 10.2 (8.4-10.2) mg/dL Total Bilirubin 0.8 (0.2-1.3) mg/dL AST 34 (17-59) U/L ALT 56 H (4-49) U/L Alkaline Phosphatase 70 (38-126) U/L Total Protein 7.9 (6.3-8.2) g/dL Albumin 5.0 (3.5-5.0) g/dL Amylase 47 (30-110) U/L Lipase 57 (23-300) U/L Urine Color Light Yellow Urine Appearance Clear (Clear) Urine pH 6.0 (5.0-8.0) Ur Specific [place] >1.050 H (1.001-1.035) Urine Protein Negative (Negative) Urine Glucose (UA) Negative (Negative) Urine Ketones Negative (Negative) Urine Blood Negative (Negative) Urine Nitrite Negative (Negative) Urine Bilirubin Negative (Negative) Urine Urobilinogen <2.0 (<2.0) mg/dL Ur Leukocyte Esterase Negative (Negative) Disposition Is patient prescribed a controlled substance at d/c from ED?: No Time of Disposition: 10:40 <Rafael Hammond - Last Filed: 03/30/23 10:36> <Rafael Paz - Last Filed: 04/07/23 21:34> Clinical Impression: Hydronephrosis Disposition: HOME SELF-CARE Condition: Good Prescriptions: Ketorolac [Toradol] 10 mg PO Q6HR #15 tab Referrals: Tomy Renner MD [Primary Care Provider] - 1-2 days
--- NOTE | 2023-03-30 07:21 | CT ---
EXAMINATION TYPE: CT abdomen pelvis w con DATE OF EXAM: 03/30/2023 COMPARISON: NONE HISTORY: 32-year-old male RUQ PAIN X 6+HOURS. PT WOKE UP AT MIDNIGHT W/ EXTREME PAIN. NO ABD SURGERIE S TECHNIQUE: Contiguous axial scanning of the abdomen and pelvis following administration of 100 ml Iso los 300 IV contrast. Delayed images through the kidneys and coronal/sagittal reconstructions perform ed. CT DLP: 1739.2 mGycm Automated exposure control for dose reduction was used. FINDINGS: LUNG BASES: No significant abnormality is appreciated. LIVER/GB: Liver enlarged measuring 21.0 cm with diffuse low attenuation. No focal lesions seen. Burt l venous system is patent. No biliary ductal dilatation. No abnormal gallbladder distention. A couple gallstones are present measuring up tor 2.2 cm. No hydropic changes surrounding inflammation PANCREAS: No significant abnormality is seen. SPLEEN: Mildly enlarged at 14.4 cm measured on axial series. ADRENALS: No significant abnormality is seen. KIDNEYS: There appears to be mild to moderate right-sided hydronephrosis but with normal caliber of t he ureter and no cysts or stone identified. Left kidney without any abnormality. BOWEL: No dilated small bowel, free fluid, or free air. Appendix not clearly identified. No secondary findings of acute appendicitis in the right lower quadrant. Possible tiny, normal appendix, coronal image 35. Mild overall stool burden. No pericolonic inflammatory change. LYMPH NODES: No greater than 1cm abdominal or pelvic lymph nodes are appreciated. PELVIS: Bladder partially distended. Left-sided pelvic phlebolith. No abnormal fluid collection in th e pelvis. OSSEOUS STRUCTURES: No significant abnormality is seen. OTHER: No significant additional abnormality is seen. IMPRESSION: 1. THERE APPEARS TO BE MILD TO MODERATE RIGHT-SIDED HYDRONEPHROSIS BUT WITH NORMAL CALIBER TO THE URE TER AND NO OBSTRUCTING STONE SEEN. RECOMMEND FURTHER UROLOGY ASSESSMENT. UPJ OBSTRUCTION/STRICTURE IS A CONSIDERATION. 2. HEPATOMEGALY AT 21.0 CM WITH AT LEAST MODERATE HEPATIC STEATOSIS. APPROPRIATE CLINICAL MANAGEMENT IS ADVISED. CORRELATE WITH LFT's, LIPID PROFILE, AND PATIENT RISK FACTORS. 3. A COUPLE GALLSTONES MEASURING UP TO 2.2 CM. NO GALLBLADDER INFLAMMATION BY CT. NO BILIARY DUCTAL D ILATATION.
--- NOTE | 2023-03-30 08:38 | US ---
EXAMINATION TYPE: US gallbladder DATE OF EXAM: 03/30/2023 COMPARISON: CT Today CLINICAL INDICATION: Male, 32 years old with history of pain; CT shows gallstones, hepatomegaly, and hydronephrosis TECHNIQUE: Multiple sonographic images of the right upper quadrant are obtained. FINDINGS: EXAM MEASUREMENTS: Liver Length: 18.4 cm Gallbladder Wall: 0.20 cm CBD: 0.30 cm Right Kidney: 11.7 x 5.5 x 4.9 cm Pancreas: Tail obscured by overlying bowel gas Liver: Increased echogenicity; hepatomegaly Gallbladder: Echogenic foci noted within the lumen with posterior shadowing Evidence for sonographic Huang's sign: No CBD: wnl Right Kidney: There appears to be mild hydronephrosis. IMPRESSION: 1. Mild hepatomegaly at 18.4 cm, slightly underestimated when correlated with patient's CT performed today as well. At least moderate hepatic steatosis. Appropriate clinical management is advised. 2. Cholelithiasis. No ancillary findings of acute cholecystitis. 3. No biliary ductal dilatation. 4. There appears to be mild right-sided hydronephrosis.
[2023-03-30 10:29] LABS: Appearance,Urine Clear (Clear); Bilirubin,Urine Negative (Negative); Blood,Urine Negative (Negative); Color,Urine Light Yellow; Glucose,Urine (UA) Negative (Negative); Ketones,Urine Negative (Negative); Leukocyte Esterase,Urine Negative (Negative); Nitrite,Urine Negative (Negative); Protein,Urine Negative (Negative); Urobilinogen,Urine <2.0 mg/dL (<2.0)
[2023-03-30 10:33] LABS: Specific Gravity,Urine >1.050 (1.001-1.035)
[2023-03-30] MEDS ORDERED: ACET/COD 300 MG/30 MG STARTER PACK 6 TAB BTL PO STA (10:40)
[2023-03-30 10:59] VITALS: BP 127/80; PULSE 87; TEMP 98.7
== END 2023-03-30 10:53 | disposition home or self-care (01) ==
LOC: EC 04:23
DX: N13.2 Hydronephrosis with renal and ureteral calculous obstruction (principal)
CPT/HCPCS: 99285 ×2; 96374 ×2; 96375 ×3; 96376 ×2; 96361 ×2; 36415; 80053; 82150; 83690; 85025; 81003; 76705; 74177; J2405; J1170; J1885; Q9967

== ENCOUNTER → 2023-04-29 | Outpatient (CLI) | payer BC ==
[~2023-04-29] MED LIST changes: -DEXAMETHASONE SOD PHOSPHATE 4 MG/ML 1 ML VIAL IV ONE; +FUROSEMIDE 10 MG/ML 2 ML VIAL IVP PRN; -HYDROmorphone 0.5 MG/0.5 ML SYRINGE IVP PRN; -LACTATED RINGERS 1,000 ML IV SCH; -MIDAZOLAM 2 MG/2 ML VIAL IV PRN; -ONDANSETRON 4 MG/2 ML VIAL IVP ONE; -SCOPOLAMINE 1 MG/72 HR PATCH TRANSDERM ONE
--- NOTE | 2023-04-29 14:26 | NM ---
EXAMINATION TYPE: NM lasix renogram DATE OF EXAM: 04/29/2023 COMPARISON: 03/30/2023. CLINICAL INDICATION: Male, 32 years old with history of N13.30 UNSPECIFIED HYDRONEPHROSIS; Following administration of 10.01 mCi Tc 99m MAG3 with 20mg Lasix. Immediate images post injection FINDINGS: Left: 52.2 %. Right: 47.8 %. Max renal flow left: 4.0 minutes. Max renal flow right: 5.0 minutes. Satisfactory accumulation of radiotracer within both renal collecting systems. After the administrati on of Lasix, there is prompt excretion from the left kidney. The right kidney has a blunted response with counts remaining elevated. T 1/2 left: 12.8 minutes. T 1/2 right: NA minutes. IMPRESSION: Renograms suggesting partial obstruction on the right. No evidence for left renal obstruction.
== END | disposition home or self-care (01) ==
LOC: RADNMMAIN 12:55
PROVIDERS: ATTEND Urology
DX: N13.30 Unspecified hydronephrosis (principal)
CPT/HCPCS: 78708; A9562

== ENCOUNTER → 2023-05-22 | Outpatient (CLI) | payer BC ==
[2023-05-23 02:47] LABS: BUN/Creat Ratio 16.67 Ratio (12.00-20.00); Calcium 10.5 mg/dL (8.7-10.3); Carbon Dioxide 25.7 mmol/L (21.6-31.8); Chloride 102 mmol/L (96-109); Glucose 108 mg/dL (70-110); Potassium 4.3 mmol/L (3.5-5.5); Sodium 141 mmol/L (135-145)
[2023-05-23 04:18] LABS: Appearance,Urine Turbid (Clear); Bilirubin,Urine Negative (Negative); Blood,Urine Negative (Negative); Color,Urine Yellow (Yellow); Ketones,Urine Negative (Negative); Nitrite,Urine Negative (Negative); PH, Urine 5.5; Specific Gravity,Urine 1.028 (1.001-1.030); Urobilinogen,Urine 0.2 E.U./DL
[2023-05-23 04:32] LABS: Bacteria,Urine None Seen (None Seen)
[2023-05-23 08:52] LABS: Basophils # (A) 0.02 X 10*3/uL (0.00-0.10); Basophils % (A) 0.3 %; Eosinophils # (A) 0.08 X 10*3/uL (0.04-0.35); Eosinophils % (A) 1.2 %; HCT 45.3 % (39.6-50.0); HGB 15.5 g/dL (13.0-17.0); Lymphocytes # (A) 1.83 X 10*3/uL (0.90-5.00); Lymphocytes % (A) 26.5 %; MCH 31.1 pg (27.0-32.0); MCHC 34.2 g/dL (32.0-37.0); MCV 90.8 FL (80.0-97.0); Mean Platelet Volume 9.5 FL (9.5-12.2); Monocytes % (A) 7.2 %; NRBC Per 100 WBC 0 X 10*3/uL (0.00-0.01); Neutrophils # (A) 4.44 X 10*3/uL (1.80-7.70); Neutrophils % (A) 64.2 %; Platelet Count 325 X 10*3/uL (140-440); RBC 4.99 X 10*6/uL (4.40-5.60); RDW 12.7 % (11.5-14.5); WBC 6.91 X 10*3/uL (4.50-10.00)
== END | disposition home or self-care (01) ==
LOC: LABPAT 16:03
PROVIDERS: ATTEND Urology
DX: Z01.812 Encounter for preprocedural laboratory examination (principal); N13.30 Unspecified hydronephrosis
CPT/HCPCS: 36415; 80048; 81001; 85025; 86850; 86900; 86901; 87086

== ENCOUNTER 2023-05-29 05:46 | Day surgery (SDC) | payer BC ==
[2023-05-23 12:52] VITALS: BMI 34.5
--- NOTE | 2023-05-28 13:00 | P.HPIHPCON ---
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 I reviewed the images with him and his in detail. Discussed with him given the evidence of hydronephrosis, and obstruction on L asix renogram and his symptoms I do recommend proceeding with a robotic pyeloplasty. Aware of the risk which includes but not limited to bleeding, infection, injury to nearby organs which includes but not limited to bowel, the kidney and liver. Discussed also potential of persistent obstruction even with a pyeloplasty. Discussed if there is injury to the kidney the potential of conversion to a radical nephrectomy. Risk of anesthesia was also discussed with him in detail. He understood all the risk and agreed to proceed Consent for Procedure: I have explained the operation/procedure to the patient, including the risks, benefits, side effects, alternative therapies (including not receiving the proposed treatment or service), the likelihood of the patient achieving his/her goals, and potential recuperation problems for the procedure/sedation/analgesia, as well as any blood products, if indicated. I also explained to the patient the risks, benefits and side effects of the alternatives, as well as the risks related to not receiving the proposed procedure, care, treatment, or services. 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 - no residual effects from CVA, hydronephrosis History of Any Multi-Drug Resistant Organisms: None Reported Past Surgical History: No Surgical Hx Reported Additional Past Surgical History / Comment(s): KEON, Rt.knee arthroscopy Past Anesthesia/Blood Transfusion Reactions: No Reported Reaction Past Psychological History: No Psychological Hx Reported Smoking Status: Never smoker Past Alcohol Use History: Occasional Past Drug Use History: None Reported Additional Drug Use History / Comment(s): SMOKED MARIJUANA FOR 6 YEARS AND QUIT 2020, TOOK ADDERAL PREVIOUSLY - Past Family History Mother Family Medical History: No Reported History Family Family Medical History: CVA/TIA Medications and Allergies Home Medications Medication Instructions Recorded Confirmed Type Aspirin 81 mg PO DAILY #30 tab 01/01/21 05/23/23 Rx HYDROcodone/APAP 5-325MG [[place] 1 tab PO Q6HR PRN #12 tab 08/22/22 05/23/23 Rx 5-325] Ketorolac [Toradol] 10 mg PO Q6HR PRN 05/23/23 05/23/23 History Allergies Allergy/AdvReac Type Severity Reaction Status Date / Time No Known Allergies Allergy Verified 05/23/23 11:56 Surgical - Exam - General no distress, no pain - Eyes normal ocular movement, no pale - ENT normal nares, normal mucosa - Respiratory normal expansion, normal respiratory effort - Abdomen Abdomen: soft, non tender - Psychiatric oriented to time, oriented to person, oriented to place Assessment and Plan Assessment: OR for robotic right-sided pyeloplasty
[2023-05-29] MEDS: LACTATED RINGERS 1,000 ML IV SCH (06:19)
[2023-05-29] MEDS: LACTATED RINGERS 900 ML IV ONE ×2 (06:19)
[2023-05-29] MEDS: DEXAMETHASONE SOD PHOSPHATE 4 MG/ML 1 ML VIAL IV ONE (06:49)
[2023-05-29] MEDS: ONDANSETRON 4 MG/2 ML VIAL IVP ONE (06:49)
[2023-05-29] MEDS: FAMOTIDINE 20 MG/2 ML VIAL IVP ONE (06:49)
[2023-05-29] MEDS: MIDAZOLAM 2 MG/2 ML VIAL IVP ONE (07:03)
[2023-05-29] MEDS ORDERED: SUCCINYLCHOLINE CHLORIDE 200 MG/10 ML VIAL IV ONE (07:25)
[2023-05-29] MEDS ORDERED: GLYCOPYRROLATE 0.2 MG/ML 2 ML VIAL ONE (07:25)
[2023-05-29] MEDS ORDERED: NEOSTIGMINE 1 MG/ML 10 ML VIAL ONE (07:25)
[2023-05-29] MEDS ORDERED: KETAMINE HCL IN 0.9 % NACL 50 MG/5 ML SYRINGE ONE (07:25)
[2023-05-29] MEDS ORDERED: ROCURONIUM 10 MG/ML (5 ML VIAL) IV ONE (07:25)
[2023-05-29] MEDS ORDERED: PHENYLEPHRINE 10 MG/ML VIAL ONE (07:25)
[2023-05-29] MEDS ORDERED: PROPOFOL 10 MG/ML 20 ML VIAL IV ONE (07:25)
[2023-05-29] MEDS ORDERED: MIDAZOLAM 2 MG/2 ML VIAL ONE (07:25)
[2023-05-29] MEDS ORDERED: fentaNYL (PF) 50 MCG/ML 2 ML AMP ONE (07:25)
[2023-05-29] MEDS ORDERED: LIDOCAINE 1% INJ 10MG/ML (20 ML MDV) ONE (07:25)
[2023-05-29] MEDS: BUPIVACAINE (PF) 0.25% 30 ML VIAL SQ ONE (07:30)
[2023-05-29] MEDS: LACTATED RINGERS 1,000 ML IV ONE (08:26)
--- NOTE | 2023-05-29 11:18 | P.OP ---
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 I reviewed the images with him and his in detail. Discussed with him given the evidence of hydronephrosis, and obstruction on Lasix renogram and his symptoms I do recommend proceeding with a robotic pyeloplasty. Aware of the risk which includes but not limited to bleeding, infection, injury to nearby organs which includes but not limited to bowel, the kidney and liver. Discussed also potential of persistent obstruction even with a pyeloplasty. Discussed if there is injury to the kidney the potential of conversion to a radical nephrectomy. Risk of anesthesia was also discussed with him in detail. He understood all the risk and agreed to proceed Operative Findings: Crossing vessel right at the UPJ Description of Procedure: The patient was taken to the operating room . General anesthesia was induced. He was prepped and draped in sterile fashion, and was placed in modified flank position . All pressure points were padded. The abdominal insufflation was achieved with the Veress needle. A 8 mm camera port was placed. Robotic trocars and 8 mm assistant golf coach ports were placed under direct vision. a 5 mm liver retractor was placed. . The robot was docked into place. The colon was mobilized medially by incising along the white line of Toldt. Next the duodenum was kocherized. At this time the vena cava was exposed. Next the ureter was visualized, the ureter was retracted off of the psoas muscle. The ureter was mobilized all the way down to the UPJ. I did have to clip the gonadal vein in order to further dissect the ureter down to the UPJ. At this point of the UPJ I encountered a crossing vessel, there was both the renal artery and a renal vein in the lower pole, this was causing kinking of the UPJ. At this time the renal pelvis was identified and was distended, inflammatory tissue around the renal pelvis was dissected off, at this time the ureter was incised off of the renal pelvis in order to do a dismembered pyeloplasty. At this time the renal pelvis and the ureter was mobilized now its anterior to the crossing vessel. Anastomosis was performed using 4-0 V-Loc in a running fashion. After completing the posterior layer of the anastomosis at this time a 14-gauge Angiocath was placed through the abdomen, next a sensor wire was advanced through the Angiocath and into the ureter. Next a 6 [place] by 28 cm stent was advanced over the wire and into the ureter, at this point the proximal curl of the stent was placed in the renal pelvis, and the anastomosis was completed. Anastomosis was watertight. At this time a 10 [place] flat CAROLE was placed through the lower quadrant. At this time the robot was undocked. Skin was closed with subcuticular sutures and dermabond. The patient was awoken from general anesthesia in stable condition.
[2023-05-29] MEDS: HYDROmorphone 0.5 MG/0.5 ML SYRINGE IVP PRN (12:32)
[2023-05-29] MEDS: HYDROmorphone 1 MG/ML 1 ML SYRINGE IVP PRN (13:06)
[2023-05-29] MEDS: HYDROcodone/APAP 5-325MG 1 EACH TAB PO PRN (15:33)
[2023-05-29] MEDS: D5-0.45% NACL WITH KCL 20MEQ/L 1,000 ML IV SCH (15:35)
[2023-05-29] MEDS: ONDANSETRON 4 MG/2 ML VIAL IVP PRN (16:47)
[2023-05-29] MEDS: KETOROLAC 15 MG/ML 1 ML VIAL IVP SCH (18:18)
[2023-05-29] MEDS: HEPARIN SODIUM,PORCINE 5,000 UNIT/ML 1 ML VIAL SQ SCH (19:03)
[2023-05-30 08:20] VITALS: BP 105/68; PULSE 78; RESP 18; TEMP 98.2
== END 2023-05-30 14:33 ==
LOC: OR 05:46 → 4SSUR 12:39 → OR 05-30 14:33
PROVIDERS: ATTEND Urology
DX: N13.30 Unspecified hydronephrosis (principal); Z79.82 Long term (current) use of aspirin
CPT/HCPCS: 50544; S2900

== ENCOUNTER 2023-11-29 06:52 | Inpatient (IN) | payer BC ==
--- NOTE | 2023-11-29 07:03 | ED ---
General Adult HPI - General Stated complaint: Abd pain Time Seen by Provider: 11/29/23 07:01 Source: patient, RN notes reviewed Mode of arrival: ambulatory Limitations: no limitations - History of Present Illness Initial comments: This is a 33-year-old male presents emergency department with chief complaint of right upper quadrant abdominal pain. Patient states pain started around 230 this morning. Patient states it woke him up abruptly right upper quadrant abdominal pain. He has no complaints of reflux he does have slight nausea he is concerned about his gallbladder. Patient states pain is constant nothing make the pain feel better or worse. 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 - Related Data Previous Rx's Medication Instructions Recorded Aspirin 81 mg PO DAILY #30 tab 01/01/21 Allergies Allergy/AdvReac Type Severity Reaction Status Date / Time No Known Allergies Allergy Verified 11/29/23 12:09 Review of Systems ROS Statement: Those systems with pertinent positive or pertinent negative responses have been documented in the HPI. ROS Other: All systems not noted in ROS Statement are negative. 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 Absent: scleral icterus, conjunctival injection, periorbital swelling ENT exam: Present: normal exam, mucous membranes moist Neck exam: Present: normal inspection, full ROM. Absent: tenderness, meningismus, lymphadenopathy Respiratory exam: Present: normal lung sounds bilaterally. Absent: respiratory distress, wheezes, rales, rhonchi, stridor Cardiovascular Exam: Present: regular rate, normal rhythm, normal heart sounds. Absent: systolic murmur, diastolic murmur, rubs, gallop, clicks GI/Abdominal exam: Present: soft, tenderness, normal bowel sounds. Absent: distended, guarding, rebound, rigid Back exam: Absent: CVA tenderness (R), CVA tenderness (L) Neurological exam: Present: alert Skin exam: Present: warm, dry, intact, normal color. Absent: rash Course Vital Signs 11/29/23 11/29/23 11/29/23 07:21 12:51 16:00 Temperature 97.8 F 98.2 F Pulse Rate 86 67 Respiratory 20 18 Rate Blood Pressure 130/86 128/87 135/85 O2 Sat by Pulse 99 97 Oximetry 11/29/23 16:45 Temperature Pulse Rate 72 Respiratory 18 Rate Blood Pressure 129/80 O2 Sat by Pulse 95 Oximetry Medical Decision Making - Medical Decision Making Was pt. sent in by a medical professional or institution (, PA, ENGINE EMISSION TECHNICIAN, urgent care, hospital, or residential...) When possible be specific @ -No Did you speak to anyone other than the patient for history (EMS, parent, family, police, friend...)? What history was obtained from this source @ -No Did you review nursing and triage notes (agree or disagree)? Why? @ -I reviewed and agree with nursing and triage notes Were old charts reviewed (outside hosp., previous admission, EMS record, old EKG, old radiological studies, urgent care reports/EKG's, residential records)? Report findings @ -No old charts were reviewed Differential Diagnosis (chest pain, altered mental status, abdominal pain women, abdominal pain men, vaginal bleeding, weakness, fever, dyspnea, syncope, headache, dizziness, GI bleed, back pain, seizure, CVA, palpatations, mental health, musculoskeletal)? @ -Tangential down [place] EKG interpreted by me (3pts min.). @ -As above X-rays interpreted by me (1pt min.). @ -None done CT interpreted by me (1pt min.). @ -CT ab pelvis showing large dilation of the collecting duct the right kidney, unable to assess ureter, cholelithiasis U/S interpreted by me (1pt. min.). @ -Ultra sound right upper quadrant showing hydronephrosis, gallstones What testing was considered but not performed or refused? (CT, X-rays, U/S, labs)? Why? @ -None What meds were considered but not given or refused? Why? @ -None Did you discuss the management of the patient with other professionals (professionals i.e. , PA, ENGINE EMISSION TECHNICIAN, lab, RT, psych nurse, social media developer, needle punch machine operator helper, teacher, chief science officer, manager of case management)? Give summary @ -Discussed the case with urologist Dr. Ernandez regarding CT and ultrasound findings, discussed admission with Dr. Mera. Was smoking cessation discussed for >3mins.? @ -No Was critical care preformed (if so, how long)? @ -No Were there social determinants of health that impacted care today? How? (Homelessness, low income, unemployed, alcoholism, drug addiction, transportation, low edu. Level, literacy, decrease access to med. care, senior care, rehab)? @ -No Was there de-escalation of care discussed even if they declined (Discuss DNR or withdrawal of care, Hospice)? DNR status @ -No What co-morbidities impacted this encounter? (DM, HTN, Smoking, COPD, CAD, Cancer, CVA, ARF, Chemo, Hep., AIDS, mental health diagnosis, sleep apnea, morbid obesity)? @ -None Was patient admitted / discharged? Hospital course, mention meds given and route, prescriptions, significant lab abnormalities, going to OR and other pertinent info. @ -Admitted patient is admitted to medicine for further consultation of urology and surgical possible intervention. Patient's pain is improved patient is found to have hydronephrosis, cholelithiasis laboratory studies unremarkable otherwise Undiagnosed new problem with uncertain prognosis? @ -No Drug Therapy requiring intensive monitoring for toxicity (Heparin, Nitro, Insulin, Cardizem)? @ -No Were any procedures done? @ -No Diagnosis/symptom? @ -Abdominal pain, hydronephrosis, cholelithiasis Acute, or Chronic, or Acute on Chronic? @ -Acute Uncomplicated (without systemic symptoms) or Complicated (systemic symptoms)? @ -complicated Side effects of treatment? @ -No Exacerbation, Progression, or Severe Exacerbation? @ -No Poses a threat to life or bodily function? How? (Chest pain, [place], HI, pneumonia, PE, COPD, DKA, ARF, appy, cholecystitis, CVA, Diverticulitis, Homicidal, Suicidal, threat to staff... and all critical care pts) @ -No - Lab Data Result diagrams: 11/29/23 07:01 11/29/23 07:01 Lab Results 0911/29/23 11/29/23 Range/Units 07:01 07:01 07:01 WBC 7.8 (3.8-10.6) k/uL RBC 5.01 (4.30-5.90) m/uL Hgb 16.1 (13.0-17.5) gm/dL Hct 45.9 (39.0-53.0) % MCV 91.5 (80.0-100.0) fL MCH 32.1 (25.0-35.0) pg MCHC 35.1 (31.0-37.0) g/dL RDW 12.8 (11.5-15.5) % Plt Count 236 (150-450) k/uL MPV 7.4 Neutrophils % (Manual) 87 % Lymphocytes % (Manual) 8 % Monocytes % (Manual) 5 % Neutrophils # (Manual) 6.79 (1.3-7.7) k/uL Lymphocytes # (Manual) 0.62 L (1.0-4.8) k/uL Monocytes # (Manual) 0.39 (0-1.0) k/uL Nucleated RBCs 0 (0-0) /100 WBC Manual Slide Review Performed RBC Morphology Normal Sodium 139 (137-145) mmol/L Potassium 4.6 (3.5-5.1) mmol/L Chloride 105 (98-107) mmol/L Carbon Dioxide 21 L (22-30) mmol/L Anion Gap 13 mmol/L BUN 15 (9-20) mg/dL Creatinine 0.80 (0.66-1.25) mg/dL Est GFR (CKD-EPI)AfAm >90 (>60 ml/min/1.73 sqM) Est GFR (CKD-EPI)NonAf >90 (>60 ml/min/1.73 sqM) Glucose 117 H (74-99) mg/dL Plasma Lactic Acid Vicente 1.2 (0.7-2.0) mmol/L Calcium 10.1 (8.4-10.2) mg/dL Total Bilirubin 1.5 H (0.2-1.3) mg/dL AST 38 (17-59) U/L ALT 58 H (4-49) U/L Alkaline Phosphatase 65 (38-126) U/L Total Protein 7.9 (6.3-8.2) g/dL Albumin 5.1 H (3.5-5.0) g/dL Lipase 44 (23-300) U/L Urine Color Urine Appearance (Clear) Urine pH (5.0-8.0) Ur Specific [place] (1.001-1.035) Urine Protein (Negative) Urine Glucose (UA) (Negative) Urine Ketones (Negative) Urine Blood (Negative) Urine Nitrite (Negative) Urine Bilirubin (Negative) Urine Urobilinogen (<2.0) mg/dL Ur Leukocyte Esterase (Negative) 11/29/23 Range/Units 10:34 WBC (3.8-10.6) k/uL RBC (4.30-5.90) m/uL Hgb (13.0-17.5) gm/dL Hct (39.0-53.0) % MCV (80.0-100.0) fL MCH (25.0-35.0) pg MCHC (31.0-37.0) g/dL RDW (11.5-15.5) % Plt Count (150-450) k/uL MPV Neutrophils % (Manual) % Lymphocytes % (Manual) % Monocytes % (Manual) % Neutrophils # (Manual) (1.3-7.7) k/uL Lymphocytes # (Manual) (1.0-4.8) k/uL Monocytes # (Manual) (0-1.0) k/uL Nucleated RBCs (0-0) /100 WBC Manual Slide Review RBC Morphology Sodium (137-145) mmol/L Potassium (3.5-5.1) mmol/L Chloride (98-107) mmol/L Carbon Dioxide (22-30) mmol/L Anion Gap mmol/L BUN (9-20) mg/dL Creatinine (0.66-1.25) mg/dL Est GFR (CKD-EPI)AfAm (>60 ml/min/1.73 sqM) Est GFR (CKD-EPI)NonAf (>60 ml/min/1.73 sqM) Glucose (74-99) mg/dL Plasma Lactic Acid Vicente (0.7-2.0) mmol/L Calcium (8.4-10.2) mg/dL Total Bilirubin (0.2-1.3) mg/dL AST (17-59) U/L ALT (4-49) U/L Alkaline Phosphatase (38-126) U/L Total Protein (6.3-8.2) g/dL Albumin (3.5-5.0) g/dL Lipase (23-300) U/L Urine Color Light Yellow Urine Appearance Clear (Clear) Urine pH 6.0 (5.0-8.0) Ur Specific [place] >1.050 H (1.001-1.035) Urine Protein Negative (Negative) Urine Glucose (UA) Negative (Negative) Urine Ketones Negative (Negative) Urine Blood Negative (Negative) Urine Nitrite Negative (Negative) Urine Bilirubin Negative (Negative) Urine Urobilinogen <2.0 (<2.0) mg/dL Ur Leukocyte Esterase Negative (Negative) Disposition Clinical Impression: Abdominal pain, Hydronephrosis, Cholelithiasis Disposition: ADMITTED IP TO THIS [facility] Condition: Poor Time of Disposition: 11:52
--- NOTE | 2023-11-29 07:49 | US ---
EXAMINATION TYPE: US gallbladder DATE OF EXAM: 11/29/2023 COMPARISON: 03/30/2023 CLINICAL INDICATION: Male, 33 years old with history of pain; HX Fatty Liver, Hydronephrosis, and Gal lstones TECHNIQUE: Multiple sonographic images of the right upper quadrant are obtained. 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 Hepatic steatosis with focal fatty sparing. 2. Cholelithiasis. 3. Mild right hydronephrosis.
[2023-11-29] MEDS: SODIUM CHLORIDE 0.9% 1,000 ML IV STA (08:35)
[2023-11-29] MEDS: HYDROmorphone 0.5 MG/0.5 ML SYRINGE IVP STA ×2 (08:35→10:11)
[2023-11-29] MEDS: ONDANSETRON 4 MG/2 ML VIAL IVP STA (08:35)
[2023-11-29 09:01] LABS: ALT 58 U/L (4-49); AST 38 U/L (17-59); African American GFR (CKD) >90 (>60 ml/min/1.73 sqM); Albumin 5.1 g/dL (3.5-5.0); Alkaline Phosphatase 65 U/L (38-126); Anion Gap 13 mmol/L; Blood Urea Nitrogen 15 mg/dL (9-20); Calcium 10.1 mg/dL (8.4-10.2); Carbon Dioxide 21 mmol/L (22-30); Chloride 105 mmol/L (98-107); Glucose 117 mg/dL (74-99); Lipase 44 U/L (23-300); Non-African American GFR(CKD) >90 (>60 ml/min/1.73 sqM); Potassium 4.6 mmol/L (3.5-5.1); Sodium 139 mmol/L (137-145); Total Bilirubin 1.5 mg/dL (0.2-1.3); Total Protein 7.9 g/dL (6.3-8.2)
[2023-11-29 09:22] LABS: HCT 45.9 % (39.0-53.0); HGB 16.1 gm/dL (13.0-17.5); MCH 32.1 pg (25.0-35.0); MCHC 35.1 g/dL (31.0-37.0); MCV 91.5 fL (80.0-100.0); Mean Platelet Volume 7.4; Platelet Count 236 k/uL (150-450); RBC 5.01 m/uL (4.30-5.90); RDW 12.8 % (11.5-15.5); WBC 7.8 k/uL (3.8-10.6)
[2023-11-29 09:53] LABS: Lymphocytes # (M) 0.62 k/uL (1.0-4.8); Monocytes # (M) 0.39 k/uL (0-1.0); Neutrophils # (M) 6.79 k/uL (1.3-7.7); Neutrophils % (M) 87 %; Nucleated Red Blood Cells 0 /100 WBC (0-0); RBC Morphology Normal; Total Cells Counted 100
[2023-11-29] MEDS: KETOROLAC 15 MG/ML 1 ML VIAL IVP STA (10:14)
[2023-11-29] MEDS: SODIUM CHLORIDE 0.9% 1,000 ML IV ONE (10:15)
--- NOTE | 2023-11-29 10:18 | CT ---
EXAMINATION TYPE: CT abdomen pelvis w con CT DLP: 1868.2 mGycm, Automated exposure control for dose reduction was used. DATE OF EXAM: 11/29/2023 9:57 AM COMPARISON: CT abdomen pelvis most recent from 03/30/2023. CLINICAL INDICATION: Male, 33 years old with history of pain; Abdominal pain TECHNIQUE: Axial CT abdomen pelvis w con;Sagittal and coronal reformats were created on a separate w orkstation. Contrast used:100 ml mL of Isovue 300 with IV Contrast, (none if empty) Oral contrast used: without Oral Contrast (none if empty) FINDINGS: LOWER CHEST: Unremarkable ABDOMEN LIVER: Diffusely hypoattenuating parenchyma. GALLBLADDER AND BILE DUCTS: Gallstones in the gallbladder lumen. PANCREAS: Unremarkable. SPLEEN: Unremarkable. ADRENAL GLANDS: Unremarkable. KIDNEYS AND URETERS: There is moderate hydronephrosis on the right which is increased compared to 03/30 ureter is poorly evaluated. There is a high density calculus along the wall which is new. This is on the nondependent wall possibly adherent to the wall worsening of the ureteral orifice. PELVIS BLADDER: Unremarkable REPRODUCTIVE: Unremarkable. ABDOMEN & PELVIS STOMACH AND BOWEL: No evidence of bowel obstruction. PERITONEUM/RETROPERITONEUM: No evidence of pneumoperitoneum or free fluid. VASCULATURE: No evidence of aortic aneurysm. MUSCULOSKELETAL: No acute osseous abnormalities LYMPH NODES: No gross evidence for lymphadenopathy. SOFT TISSUE/ABDOMINAL WALL: Fat-containing umbilical hernia. IMPRESSION: 1. Moderate dilation of the right collecting system with calculus adherent to the nondependent wall. The ureters poorly visualized. This has worsened from 03/30/2023. Urologic consultation for ureteral s tricture recommended. 2. Hepatic steatosis. 3. Cholelithiasis.
[2023-11-29 10:57] LABS: Appearance,Urine Clear (Clear); Bilirubin,Urine Negative (Negative); Blood,Urine Negative (Negative); Color,Urine Light Yellow; Glucose,Urine (UA) Negative (Negative); Ketones,Urine Negative (Negative); Leukocyte Esterase,Urine Negative (Negative); Nitrite,Urine Negative (Negative); Protein,Urine Negative (Negative); Urobilinogen,Urine <2.0 mg/dL (<2.0)
[2023-11-29 11:15] LABS: Specific Gravity,Urine >1.050 (1.001-1.035)
[2023-11-29] MEDS ORDERED: NALOXONE 0.4 MG/ML 1 ML VIAL IV PRN (11:52)
--- NOTE | 2023-11-29 12:16 | XR ---
KUB. HISTORY: Abdominal pain. COMPARISON: None. TECHNIQUE: 2 upright views of the abdomen were obtained. FINDINGS: The lung bases are clear. There is no free intraperitoneal air beneath the diaphragm. The bowel gas pattern is nonspecific and there is no evidence of obstruction. There is mild retained contrast within the hepatic flexure the colon. No suspicious abdominal or pelvic calcifications are seen. The urinary bladder is opacified with cont rast. The osseous structures are intact. IMPRESSION: Nonspecific abdomen without evidence of free air or obstruction.
[2023-11-29] MEDS: SODIUM CHLORIDE 0.9% 1,000 ML IV SCH (12:53)
[2023-11-29] MEDS: HYDROmorphone 0.5 MG/0.5 ML SYRINGE IVP PRN (12:54)
--- NOTE | 2023-11-29 18:48 | P.HPIM ---
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 Patient states that around 2:30 AM last night patient started having left upper quadrant abdominal pain below the rib cage and could not sleep. Patient also felt some tenderness in the right flank region. Patient came to hospital for evaluation. Did have flulike symptoms with fever on Friday. Patient felt nauseous. No episodes of vomiting. No chest pain or shortness of breath. Denies any other recent illnesses.. Patient states that he had laparoscopic right pyeloplasty in May 2023. On admission CT of the abdomen pelvis showed moderate dilation of the right collecting system with calculus adherent to the nondependent wall. Ureters poorly visualized. Worsened from 03/30/2023. Hepatic steatosis and cholelithiasis. Ultrasound of the gallbladder showed hepatic steatosis with focal fatty sparing. Cholelithiasis. Mild right hydronephrosis. KUB x-ray showed nonspecific abdomen without evidence of free air or obstruction. Laboratory data showed WBC 7.8 hemoglobin 16.1 and platelets 236 sodium 139 potassium 4.6 chloride 105 bicarb is 21 BUN 15 and creatinine 0.80 blood sugar 117 total bili 1.5 AST 38 ALT 58 and alk phos 65. Lipase 44. Urinalysis is negative for infection. Review of Systems Constitutional: Patient denies any fever or chills . No generalized weakness or weight loss. Abdomen: Patient denied nausea vomiting and diarrhea. Patient does have right upper quadrant abdominal pain. No diarrhea. Cardiovascular: Patient denies any chest pain or short of breath no palpitations. Respiratory: patient denied any cough or sputum production. No shortness of breath Neurologic: Patient denied any numbness or tingling. no headache. Musculoskeletal: Patient denies any complaints of joint swelling or deformity. Skin: Negative Psychiatric: Negative Endocrine: No heat or cold intolerance. No recent weight gain. Genitourinary: No dysuria or hematuria. 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, History of Any Multi-Drug Resistant Organisms: None Reported Past Surgical History: No Surgical Hx Reported Additional Past Surgical History / Comment(s): KEON, Past Anesthesia/Blood Transfusion Reactions: No Reported Reaction Past Alcohol Use History: None Reported - Past Family History Mother Family Medical History: No Reported History Family Family Medical History: CVA/TIA Medications and Allergies Home Medications Medication Instructions Recorded Confirmed Type Aspirin 81 mg PO DAILY #30 tab 01/01/21 11/29/23 Rx Allergies Allergy/AdvReac Type Severity Reaction Status Date / Time No Known Allergies Allergy Verified 11/29/23 12:09 Physical Exam Vitals: Vital Signs Temp Pulse Resp BP Pulse Ox 11/29/23 12:51 128/87 11/29/23 07:21 97.8 F 86 20 130/86 99 Intake and Output 11/29/23 11/29/23 11/29/23 06:59 14:59 22:59 Other: Weight 120.202 kg PHYSICAL EXAMINATION: Patient is lying in the bed comfortably, no acute distress, awake alert and orie nted.. HEENT: Normocephalic. Neck is supple. Pupils reactive. Nostrils clear. Oral cavity is moist. Neck reveals no JVD, carotid bruits, or thyromegaly. CHEST EXAMINATION: Trachea is central. Symmetrical expansion. Lung ha clear to auscultation and percussion. CARDIAC: Normal S1, S2 with no gallops. No murmurs ABDOMEN: Soft. Bowel sounds normal. Nontender. No organomegaly. No abdominal bruits. Extremities: reveal no edema. No clubbing or cyanosis Neurologically awake, alert, oriented x3 with well-coordinated movements. No focal deficits noted Skin: No rash or skin lesions. Psychiatric: Coperative. Nonsuicidal Musculoskeletal: No joint swelling or deformity. Normal range of motion. Results CBC & Chem 7: 11/29/23 07:01 11/29/23 07:01 Labs: Abnormal Lab Results - Last 24 Hours (Table) 11/29/23 11/29/23 11/29/23 Range/Units 07:01 07:01 10:34 Lymphocytes # (Manual) 0.62 L (1.0-4.8) k/uL Carbon Dioxide 21 L (22-30) mmol/L Glucose 117 H (74-99) mg/dL Total Bilirubin 1.5 H (0.2-1.3) mg/dL ALT 58 H (4-49) U/L Albumin 5.1 H (3.5-5.0) g/dL Ur Specific [place] >1.050 H (1.001-1.035) Thrombosis Risk Factor Assmnt - DVT/VTE Prophylaxis DVT/VTE Prophylaxis: Pharmacologic Prophylaxis ordered Assessment and Plan Assessment: Right-sided hydronephrosis with CT showed moderate dilation of the right collecting system with calculus. Right upper quadrant pain and right flank discomfort. History of right pyeloplasty in May 2023 Cholelithiasis Hepatic steatosis History of CVA in December 2020 with no residual weakness Anticardiolipin antibody positive Obesity with BMI 35.9 History of methamphetamine use DVT prophylax with heparin subcu Plan: Patient will be continued on IV hydration with normal saline. Continue pain management with Dilaudid and was also given IV Toradol in the ER. Aspirin is on hold. Urology was consulted for possible intervention. Continue to follow closely. Time with Patient: Greater than 30
[2023-11-30] MEDS: HEPARIN SODIUM,PORCINE 5,000 UNIT/ML 1 ML VIAL SQ SCH (00:31)
--- NOTE | 2023-11-30 06:32 | P.CON ---
Consult Note - . Consult date: 11/30/23 Assessment/Plan:: This is a 33-year-old male who presented to the [facility] emergency department with chief complaint of right upper quadrant abdominal pain. Patient states pain started yesterday. Patient states it woke him up abruptly. He has no complaints of reflux, he does have slight nausea, and he is concerned about his gallbladder. Patient states pain is constant nothing make the pain feel better or worse. 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 He had a CT-AP which showed some concern for hydronephrosis and hydroureter. CT-AP and US also showed some Gallstones. His total bilirubin was noted to be elevated. Review of Systems ROS Statement: Those systems with pertinent positive or pertinent negative responses have been documented in the HPI. ROS Other: All systems not noted in ROS Statement are negative. 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 Absent: scleral icterus, conjunctival injection, periorbital swelling ENT exam: Present: normal exam, mucous membranes moist Neck exam: Present: normal inspection, full ROM. Absent: tenderness, m eningismus, lymphadenopathy Respiratory exam: Present: normal lung sounds bilaterally. Absent: respiratory distress, wheezes, rales, rhonchi, stridor Cardiovascular Exam: Present: regular rate, normal rhythm, normal heart sounds. Absent: systolic murmur, diastolic murmur, rubs, gallop, clicks GI/Abdominal exam: Present: soft, tenderness, normal bowel sounds. Absent: distended, guarding, rebound, rigid Back exam: Absent: CVA tenderness (R), CVA tenderness (L) Neurological exam: Present: alert Skin exam: Present: warm, dry, intact, normal color. Absent: rash 33 year old male with RUQ pain and Gallstones -Imaging reviewed -HIDA scan ordered -OK for diet -Recommend Urology consult -AM Hepatic Function Panel -Further recs pending HIDA scan Yahir Keith [facility] [phone]
[2023-11-30] MEDS: ONDANSETRON 4 MG/2 ML VIAL IVP PRN (07:56)
[2023-11-30 09:36] LABS: Basophils # (A) 0.02 X 10*3/uL (0.00-0.10); Basophils % (A) 0.2 %; Eosinophils # (A) 0.11 X 10*3/uL (0.04-0.35); Eosinophils % (A) 1.3 %; HGB 14.3 g/dL (13.0-17.0); Lymphocytes # (A) 1.33 X 10*3/uL (0.90-5.00); Lymphocytes % (A) 15.8 %; MCH 32.8 pg (27.0-32.0); MCHC 34.9 g/dL (32.0-37.0); Mean Platelet Volume 10.1 FL (9.5-12.2); Monocytes # (A) 0.72 X 10*3/uL (0.20-1.00); Monocytes % (A) 8.6 %; NRBC Per 100 WBC 0 X 10*3/uL (0.00-0.01); Neutrophils % (A) 73.7 %; Platelet Count 241 X 10*3/uL (140-440); RBC 4.36 X 10*6/uL (4.40-5.60); RDW 12.4 % (11.5-14.5); WBC 8.41 X 10*3/uL (4.50-10.00)
--- NOTE | 2023-11-30 09:57 | P.GSCN ---
History of Present Illness Consult date: 11/30/23 History of present illness: 33-year-old gentleman who presented to the hospital with an abrupt onset of right flank and upper abdominal pain. The patient is known to our office for a right pyeloplasty performed by in May. He has had no notable discomfort subsequently. There is no history of stones. He does have a history of cholelithiasis.he had a computed tomography scan showing chronic caliectasis on the right. There is some calcification near ureteropelvic junction. His urinalysis is clear. His liver functions however were mildly abnormal.he is feeling better but is still having pain. Computed tomography scan is reviewed as above. Review of Systems All systems: negative - Constitutional Denies fever, Denies weight loss - EENT Eyes: denies blurred vision Ears, nose, mouth and throat: Denies dysphagia - Cardiovascular Denies chest pain, Denies shortness of breath - Respiratory Denies cough, Denies 7 - Gastrointestinal Reports as per HPI - Genitourinary Denies dysuria, Denies hematuria - Integumentary Denies rash, Denies unusual bruising - Neurological Denies headaches, Denies syncope - Hematologic/Lymphatic Denies easy bleeding, Denies easy bruising 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, cholelithiasis History of Any Multi-Drug Resistant Organisms: None Reported Past Surgical History: No Surgical Hx Reported Additional Past Surgical History / Comment(s): KEON, Past Anesthesia/Blood Transfusion Reactions: No Reported Reaction Past Alcohol Use History: None Reported - Past Family History Mother Family Medical History: No Reported History Family Family Medical History: CVA/TIA Medications and Allergies Home Medications Medication Instructions Recorded Confirmed Type Aspirin 81 mg PO DAILY #30 tab 01/01/21 11/29/23 Rx Allergies Allergy/AdvReac Type Severity Reaction Status Date / Time No Known Allergies Allergy Verified 11/29/23 12:09 Surgical - Exam Vital Signs Temp Pulse Resp BP Pulse Ox 97.8 F 86 20 130/86 99 11/29/23 07:21 11/29/23 07:21 11/29/23 07:21 11/29/23 07:21 11/29/23 07:21 - General well developed, well nourished, no distress - Eyes normal ocular movement, no icteric - ENT no hearing loss, no congestion - Neck no masses, trachea midline - Respiratory normal respiratory effort, clear to auscultation - Abdomen Abdomen: soft, non tender, no guarding, no rigid, no rebound - Integumentary no rash, no abnormal pigmentation - Neurologic no disoriented, no combative - Psychiatric oriented to time, oriented to person, oriented to place, speech is normal, memory intact Results - Labs 11/30/23 02:36 11/29/23 07:01 Abnormal Lab Results - Last 24 Hours (Table) 11/29/23 11/30/23 Range/Units 10:34 02:36 RBC 4.36 L (4.40-5.60) X 10*6/uL MCH 32.8 H (27.0-32.0) pg Ur Specific [place] >1.050 H (1.001-1.035) - Imaging CT scan - abdomen: report reviewed, image reviewed CT scan - pelvis: report reviewed, image reviewed Assessment and Plan Assessment: impression: Right-sided abdominal pain possible due to UPJ calculus possibly due to cholelithiasis. Recommendations: The computed tomography scan is reviewed. He has chronic caliectasis which is typical with a chronic UPJ obstruction. There is a betina cification near the UPJ whether this is calcified stitch or an actual stone is indeterminate. He does not have any immediate dietary stimulation of the flank pain however his liver functions are mildly abnormal and his urine is clear. He is scheduled for a HIDA scan tomorrow. If that is negative then he'll probably need cystoscopy retrograde pyelogram and possible ureteroscopy. this has been d iscussed with the patient.
[2023-11-30 11:35] LABS: ALT 43 U/L (10-49); AST 26 U/L (14-35); Albumin 4.4 g/dL (3.8-4.9); Albumin/Globulin Ratio 2.32 Ratio (1.60-3.17); Alkaline Phosphatase 69 U/L (41-126); BUN/Creat Ratio 14.44 Ratio (12.00-20.00); Bilirubin, Conjugated 0.27 mg/dL (0.20-0.40); Bilirubin,Unconjugated 0.93 mg/dL (0.20-1.00); Carbon Dioxide 23.3 mmol/L (21.6-31.8); Chloride 103 mmol/L (96-109); Globulin 1.9 g/dL (1.6-3.3); Glucose 106 mg/dL (70-110); Potassium 4.4 mmol/L (3.5-5.5); Sodium 138 mmol/L (135-145); Total Bilirubin 1.2 mg/dL (0.3-1.2); Total Protein 6.3 g/dL (6.2-8.2)
[2023-11-30] MEDS: HYDROmorphone 1 MG/ML 1 ML SYRINGE IVP PRN (15:28)
[2023-11-30] MEDS: KETOROLAC 15 MG/ML 1 ML VIAL IVP PRN (22:40)
[2023-12-01 09:46] LABS: Basophils # (A) 0.03 X 10*3/uL (0.00-0.10); Basophils % (A) 0.7 %; Eosinophils # (A) 0.06 X 10*3/uL (0.04-0.35); Eosinophils % (A) 1.4 %; HCT 42.5 % (39.6-50.0); HGB 14.3 g/dL (13.0-17.0); Lymphocytes # (A) 0.61 X 10*3/uL (0.90-5.00); MCH 31.4 pg (27.0-32.0); MCHC 33.6 g/dL (32.0-37.0); MCV 93.4 FL (80.0-97.0); Mean Platelet Volume 9.8 FL (9.5-12.2); Monocytes # (A) 0.38 X 10*3/uL (0.20-1.00); Monocytes % (A) 8.7 %; NRBC Per 100 WBC 0 X 10*3/uL (0.00-0.01); Neutrophils # (A) 3.26 X 10*3/uL (1.80-7.70); Platelet Count 226 X 10*3/uL (140-440); RBC 4.55 X 10*6/uL (4.40-5.60); RDW 12.2 % (11.5-14.5); WBC 4.35 X 10*3/uL (4.50-10.00)
[2023-12-01 10:43] LABS: BUN/Creat Ratio 11.44 Ratio (12.00-20.00); Blood Urea Nitrogen 10.3 mg/dL (9.0-27.0); Calcium 9.5 mg/dL (8.7-10.3); Carbon Dioxide 24.8 mmol/L (21.6-31.8); Chloride 104 mmol/L (96-109); Glucose 103 mg/dL (70-110); Sodium 140 mmol/L (135-145)
[2023-12-01 10:44] LABS: AST 460 U/L (14-35); Albumin 4.5 g/dL (3.8-4.9); Albumin/Globulin Ratio 2.25 Ratio (1.60-3.17); Alkaline Phosphatase 132 U/L (41-126); Bilirubin, Conjugated 5.65 mg/dL (0.20-0.40); Bilirubin,Unconjugated 2.4 mg/dL (0.2-1.0); Total Bilirubin 8.1 mg/dL (0.3-1.2); Total Protein 6.5 g/dL (6.2-8.2)
--- NOTE | 2023-12-01 10:53 | P.PN ---
Progress Note - Text Progress Note Date: 12/01/23 Off the floor for HIDA scan, patient not seen.
[2023-12-01 10:55] LABS: ALT 856 U/L (10-49)
--- NOTE | 2023-12-01 11:58 | NM ---
EXAMINATION TYPE: NM hepatobiliary wo EF DATE OF EXAM: 12/01/2023 11:45 AM COMPARISON: CT abdomen pelvis most recent from 11/29/2023 CLINICAL INDICATION:Male, 33 years old with history of Cholecystitis; TECHNIQUE: The patient was given 5.0 mCi of Technetium 99m-Mebrofenin as a radiotracer and multiple scintigraphic images were obtained of the abdomen. FINDINGS: Normal uptake of radiotracer was identified within the liver w. No excretion is seen within the colle cting system. Findings concerning for common duct obstruction. Further evaluation clinical correlatio n recommended. IMPRESSION: Nonvisualization of the gallbladder or extrahepatic biliary system at 4 hours post injection suggesti ng common bile duct high-grade obstruction. Surgical consultation for evaluation for ERCP recommended given noncalcified stones visualized on CT imaging. Findings communicated to Dr. Tomy Renner MD on 12/01/2023 11:[address] Denver Boone.
--- NOTE | 2023-12-01 13:01 | P.PN ---
Progress Note - Text Progress Note Date: 12/01/23 JORGE. Patient seen and examined. He appears jaundice today. There is a noted increased of his Total Bilirubin and Direct Bilirubin to 8.1 and 5.6. His HIDA scan shows obstruction of the common bile duct. General Exam General appearance: alert, in no apparent distress Head exam: Present: atraumatic, normocephalic, normal inspection Eye exam: Present: normal appearance, PERRL, EOMI. Absent: scleral icterus, conjunctival injection, periorbital swelling ENT exam: Present: normal exam, mucous membranes moist Neck exam: Present: normal inspection, full ROM. Absent: tenderness, meningismus, lymphadenopathy Respiratory exam: Present: normal lung sounds bilaterally. Absent: respiratory distress, wheezes, rales, rhonchi, stridor Cardiovascular Exam: Present: regular rate, normal rhythm, normal heart sounds. Absent: systolic murmur, diastolic murmur, rubs, gallop, clicks GI/Abdominal exam: Present: soft, tenderness, normal bowel sounds. Absent: distended, guarding, rebound, rigid Back exam: Absent: CVA tenderness (R), CVA tenderness (L) Neurological exam: Present: alert Skin exam: Present: warm, dry, intact, normal color. Absent: rash 33 year old male with RUQ pain and Gallstones -HIDA scan shows obstruction of the CBD -Recommend GI consult for ERCP -AM Hepatic Function Panel reviewed and noted -Will plan for Cholecystectomy after ERCP completed Yahir Keith [facility] [phone]
[2023-12-01] MEDS: PIPERACILLIN-TAZOBACTAM 3.375 GM in SODIUM CHLORIDE 0.9% 100 ML IVPB SCH (15:32)
--- NOTE | 2023-12-01 15:36 | P.CONS ---
History of Present Illness - Reason for Consult Consult date: 12/01/23 Possible ERCP, elevated bilirubin Requesting physician: Africa Littlejohn - Chief Complaint Right upper quadrant abdominal pain - History of Present Illness This is a pleasant 33-year-old male with past medical history including gallbladder disease and CVA with a history of anticardiolipin antibody who presented to the emergency department 2 days ago with complaints of right upper quadrant abdominal pain. He states that he has had problems with his gallbladder since March of this year. He states he was supposed to have gallbladder surgery on 11/19/2023 with a surgeon at a [facility] however he canceled the procedure. He started having right upper quadrant abdominal pain again severe nature radiating into the epigastric region. He presented to the hospital gallbladder ultrasound reports hepatic steatosis and cholelithiasis with no CBD dilation. He had a HIDA scan done today that shows likely biliary obstruction as well as significantly increased LFTs and bilirubin. Gastroenterology consulted for possible ERCP. Review of Systems REVIEW OF SYSTEMS: CARDIOPULMONARY: No chest pain or shortness of breath. Gastrointestinal: Abdominal pain, right upper quadrant and epigastric. No nausea or vomiting. No hematemesis, coffee-ground emesis. No rectal bleeding, or melena. GENITOURINARY: No dysuria or hematuria. MUSCULOSKELETAL: Reports normal range of motion. SKIN: No rashes. No jaundice. ENDOCRINE: No chills, fevers. No excessive weight gain or loss. No polydipsia or polyuria. PSYCHIATRIC: Unremarkable. NEUROLOGY: No change in mental status. Denies dizziness, headache. ENT: Vision unremarkable. CONSTITUTIONAL: No recent weight loss. No fever, chills, night sweats. 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, cholelithiasis History of Any Multi-Drug Resistant Organisms: None Reported Past Surgical History: No Surgical Hx Reported Additional Past Surgical History / Comment(s): KEON, Past Anesthesia/Blood Transfusion Reactions: No Reported Reaction Past Alcohol Use History: None Reported - Past Family History Mother Family Medical History: No Reported History Family Family Medical History: CVA/TIA Medications and Allergies Home Medications Medication Instructions Recorded Confirmed Type Aspirin 81 mg PO DAILY #30 tab 01/01/21 11/29/23 Rx Allergies Allergy/AdvReac Type Severity Reaction Status Date / Time No Known Allergies Allergy Verified 11/29/23 12:09 Physical Exam Vitals: Vital Signs Temp Pulse Resp BP Pulse Ox 12/01/23 15:00 98.8 F 77 18 128/78 96 12/01/23 07:00 98.1 F 76 20 118/74 95 12/01/23 02:00 98.4 F 69 109/67 94 L 11/30/23 20:00 99 F 77 110/68 94 L Intake and Output 12/01/23 12/01/23 12/01/23 06:59 14:59 22:59 Intake Total 118 Balance 118 Intake: Oral 118 Other: Voiding Method Toilet # Voids 1 General appearance: The patient is alert, oriented, appears in no acute distress. HET: Head is normocephalic and atraumatic. Conjunctiva pink. Sclera anicteric. Neck: Supple without lymphadenopathy. Trachea midline. Heart: Regular. Lungs: Equal expansion, normal respiratory effort. Abdomen: Soft, right upper quadrant tenderness, nondistended. Skin: No rashes. No jaundice. Extremities: Normal skin color and turgor. No pedal edema. Neurological: No focal deficits. Alert and oriented x3. Results CBC & Chem 7: 12/01/23 03:40 12/01/23 03:40 Labs: Abnormal Lab Results - Last 24 Hours (Table) 12/01/23 12/01/23 Range/Units 03:40 03:40 WBC 4.35 L (4.50-10.00) X 10*3/uL Lymphocytes # 0.61 L (0.90-5.00) X 10*3/uL BUN/Creatinine Ratio 11.44 L (12.00-20.00) Ratio Total Bilirubin 8.1 H (0.3-1.2) mg/dL Conjugated Bilirubin 5.65 H (0.20-0.40) mg/dL Unconjugated Bilirubin 2.4 H (0.2-1.0) mg/dL AST 460 H (14-35) U/L ALT 856 H (10-49) U/L Alkaline Phosphatase 132 H (41-126) U/L Comments: Gallbladder ultrasound reports hepatic steatosis with focal fatty sparing. Cholelithiasis and mild right hydronephrosis. CT abdomen and pelvis with contrast reports moderate dilation of the right collecting system with calculus adherent to the nondependent wall. The ureters poorly visualized. This has worsened from 03/30/2023. Urologic consultation for ureteral stricture recommended. Hepatic steatosis. Cholelithiasis. HIDA scan reports nonvisualized elation of the gallbladder or extrahepatic biliary system at 4 hours postinjection suggesting common bile duct high-grade obstruction. Surgical consultation for evaluation for ERCP recommended given noncalcified stones visualized on CT imaging. Assessment and Plan (1) Choledocholithiasis Narrative/Plan: 33-year-old presenting with right upper quadrant abdominal pain with normal LFTs on admission that have significantly increased with total bilirubin now at 8.1 AST 460 ALT 856 and alkaline phosphatase 132 within normal lipase. Imaging has reported Yisel lithiasis he has known gallbladder disease and was scheduled to have cholecystectomy however canceled that. Now presenting with right upper quadrant pain with a abnormal HIDA scan likely secondary to CBD obstruction. Labs and imaging consistent with cholestatic pattern, likely choledocholithiasis. Will proceed with ERCP and recommend surgical follow-up with general surgery. Current Visit: Yes Status: Acute Code(s): K80.50 - CALCULUS OF BILE DUCT W/O CHOLANGITIS OR CHOLECYST W/O OBST SNOMED Code(s): 782990678 (2) Hyperbilirubinemia Current Visit: Yes Status: Acute Code(s): E80.6 - OTHER DISORDERS OF BILIRUBIN METABOLISM SNOMED Code(s): 07405088 (3) Elevated LFTs Current Visit: Yes Status: Acute Code(s): R79.89 - OTHER SPECIFIED ABNORMAL FINDINGS OF BLOOD CHEMISTRY SNOMED Code(s): 212506440 (4) Abdominal pain Current Visit: Yes Status: Acute Code(s): R10.9 - UNSPECIFIED ABDOMINAL PAIN SNOMED Code(s): 20923738 (5) Cholelithiasis Current Visit: Yes Status: Acute Code(s): K80.20 - CALCULUS OF GALLBLADDER W/O CHOLECYSTITIS W/O OBSTRUCTION SNOMED Code(s): 675487892 Plan: 1. Continue symptomatic and supportive care 2. Clear liquid diet, n.p.o. after midnight 3. Start Zosyn IV every 8 hours 4. Indomethacin as ordered 1 hour prior to procedure 5. Repeat CBC, CMP, INR tomorrow 6. Procedure discussed with patient and his who was at the bedside including risks and benefits. Will plan for ERCP tomorrow. 7. Continue with recommendations from general surgery 8. Rest of medical management per primary medical team thank you for this consultation, we will continue to follow. Thank you for this consultation, we will continue to follow. Dr. Arielle Villegas I agree with the dictator's note, documented as a scribe by [place] Guaman.
[2023-12-02 08:25] LABS: Basophils # (A) 0.04 X 10*3/uL (0.00-0.10); Basophils % (A) 0.7 %; Eosinophils # (A) 0.14 X 10*3/uL (0.04-0.35); Eosinophils % (A) 2.6 %; HCT 43.8 % (39.6-50.0); Lymphocytes # (A) 1.06 X 10*3/uL (0.90-5.00); Lymphocytes % (A) 19.3 %; MCH 31.5 pg (27.0-32.0); MCHC 34.2 g/dL (32.0-37.0); Mean Platelet Volume 10.1 FL (9.5-12.2); Monocytes # (A) 0.38 X 10*3/uL (0.20-1.00); Monocytes % (A) 6.9 %; NRBC Per 100 WBC 0 X 10*3/uL (0.00-0.01); Neutrophils # (A) 3.84 X 10*3/uL (1.80-7.70); Platelet Count 269 X 10*3/uL (140-440); RBC 4.76 X 10*6/uL (4.40-5.60); RDW 12.2 % (11.5-14.5); WBC 5.49 X 10*3/uL (4.50-10.00)
[2023-12-02 08:54] LABS: BUN/Creat Ratio 13.33 Ratio (12.00-20.00); Chloride 105 mmol/L (96-109); Glucose 105 mg/dL (70-110); Potassium 4.6 mmol/L (3.5-5.5); Sodium 139 mmol/L (135-145)
[2023-12-02 08:55] LABS: ALT 690 U/L (10-49); AST 211 U/L (14-35); Albumin 4.7 g/dL (3.8-4.9); Albumin/Globulin Ratio 1.96 Ratio (1.60-3.17); Alkaline Phosphatase 146 U/L (41-126); Bilirubin, Conjugated 1.43 mg/dL (0.20-0.40); Bilirubin,Unconjugated 1.77 mg/dL (0.20-1.00); Calcium 9.8 mg/dL (8.7-10.3); Carbon Dioxide 22.6 mmol/L (21.6-31.8); Globulin 2.4 g/dL (1.6-3.3); Total Bilirubin 3.2 mg/dL (0.3-1.2); Total Protein 7.1 g/dL (6.2-8.2)
--- NOTE | 2023-12-02 10:44 | P.PN ---
Subjective Progress Note Date: 12/02/23 This is a 33-year-old gentleman admitted with right upper quadrant abdominal pain, elevated bilirubin and LFTs , normal lipase with past medical history of gallbladder disease and multiple the medical issues. Ultrasound of gallbladder reported hepatic steatosis, cholelithiasis, CBD within normal limits, mild right hydronephrosis. evaluated by general surgery.jaundiced appearance yesterday with significant increased -T. bili 8.1, conjugated bilirubin 5.65 , AST 460, ALT 856 and alkaline phosphatase 132.Completed HIDA scan reporting obstruction of the common bile duct. Evaluated by GI and patient is scheduled for ERCP today. Cholecystectomy pending completion of ERCP. INR pending.T. bili decreased to 3.2 ,conjugated bilirubin 1.43. Denies abdominal pain, he reports abdominal tenderness. Patient also was evaluated by urology with recommendations noted. Renal function stable. N.p.o., maintained on IV fluid hydration, Zosyn. Objective - Vital Signs Vital signs: Vital Signs Temp 98.3 F 12/02/23 07:00 Pulse 66 12/02/23 07:00 Resp 17 12/02/23 07:00 BP 117/72 12/02/23 07:00 Pulse Ox 94 L 12/02/23 07:00 FiO2 Intake & Output 12/01/23 12/02/23 12/02/23 18:59 06:59 18:59 Intake Total 236 Balance 236 Intake: Oral 236 Other: # Voids 1 1 - Exam PHYSICAL EXAM: VITAL SIGNS: [As above] GENERAL: Alert and oriented x 3, sitting up in bed, no acute distress. HEENT: Atraumatic, normocephalic, conjunctivae normal. eyes normal. Clear nonicteric NECK: Supple, no JVD. CARDIOVASCULAR: S1, S2 regular. No murmur RESPIRATION: Unlabored, equal air entry, clear to auscultation. ABDOMEN: Soft, nondistended, right upper quadrant tenderness. LEGS: No edema. no swelling, no clubbing or calf tenderness. NERVOUS SYSTEM: Cranial N 2-12 grossly normal. No focal deficits. Skin: Warm and dry, no rash - Labs CBC & Chem 7: 12/02/23 02:49 12/02/23 02:49 Labs: Abnormal Lab Results - Last 24 Hours (Table) 12/01/23 12/02/23 Range/Units 03:40 02:49 BUN/Creatinine Ratio 11.44 L (12.00-20.00) Ratio Total Bilirubin 8.1 H 3.2 H (0.3-1.2) mg/dL Conjugated Bilirubin 5.65 H 1.43 H (0.20-0.40) mg/dL Unconjugated Bilirubin 2.4 H 1.77 H (0.2-1.0) mg/dL AST 460 H 211 H (14-35) U/L ALT 856 H 690 H (10-49) U/L Alkaline Phosphatase 132 H 146 H (41-126) U/L Assessment and Plan Assessment: Right upper quadrant pain with gallstones,Choledocholelithiasis. Hyperbilirubinemia and elevated LFTs Right kidney hydronephrosis with moderate dilation of the right collecting system with calculus, urology following -reports possible UPJ calculus due to cholelithiasis in a patient with history of chronic UPJ obstruction, history of right pyeloplasty May 2023. 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 INR pending. NPO, maintain IV fluid hydration and Zosyn. ERCP and cholecystectomy pending. PPI ordered for GI prophylaxis. Aggressive pulmonary toileting with incentive spirometer ordered. The impression and plan of care has been dictated as directed. : I performed a history and examination of this patient, discussed the same with the dictator. I agree with the dictator's note ,documented as a scribe. Any additional findings or plans will be noted.
[2023-12-02] MEDS: PANTOPRAZOLE 40 MG/10 ML VIAL IVP SCH (11:26)
[2023-12-02 11:33] LABS: INR 0.98 sec (0.93-1.11); Prothrombin Time 10.6 sec (9.9-11.9)
[2023-12-02] MEDS: INDOMETHACIN 100 MG SUPPOSITORY RECTAL ONE (13:18)
--- NOTE | 2023-12-02 13:43 | P.PN ---
Subjective Progress Note Date: 12/02/23 Denies any flank pain gross hematuria or dysuria. Plan for him to undergo ERCP today. Objective - Vital Signs Vital signs: Vital Signs Temp 98.3 F 12/02/23 07:00 Pulse 66 12/02/23 07:00 Resp 17 12/02/23 07:00 BP 117/72 12/02/23 07:00 Pulse Ox 94 L 12/02/23 07:00 FiO2 Intake & Output 12/01/23 12/02/23 12/02/23 18:59 06:59 18:59 Intake Total 236 Balance 236 Intake: Oral 236 Other: # Voids 1 1 - Constitutional General appearance: Present: no acute distress - Gastrointestinal General gastrointestinal: Present: soft, tenderness (Right upper quadrant). Absent: distended - Psychiatric Psychiatric: Present: A&O x's 3 - Labs CBC & Chem 7: 12/02/23 02:49 12/02/23 02:49 Labs: Abnormal Lab Results - Last 24 Hours (Table) 12/02/23 Range/Units 02:49 Total Bilirubin 3.2 H (0.3-1.2) mg/dL Conjugated Bilirubin 1.43 H (0.20-0.40) mg/dL Unconjugated Bilirubin 1.77 H (0.20-1.00) mg/dL AST 211 H (14-35) U/L ALT 690 H (10-49) U/L Alkaline Phosphatase 146 H (41-126) U/L Assessment and Plan Assessment: Status post right-sided pyeloplasty on May 28. Admitted to the hospital with cholecystitis and a stone at the common bile duct. Urology is consulted for hydronephrosis. I discussed with him the images does show evidence of right- sided hydronephrosis which can occur post pyeloplasty but discussed given the finding of calcification at the UPJ versus a stone I do recommend eventually for him to undergo a right sided retrograde pyelogram once he undergoes the ERCP and the cholecystectomy. Discussed at this point he is asymptomatic from his hydronephrosis as he has no flank pain, and his symptoms are related to his gallbladder rather than kidney. At this time from urology standpoint he is okay for discharge, I have scheduled him for a cystoscopy and a right retrograde pyelogram with a ureteroscopy and possible laser and stent as an outpatient on December 08
[2023-12-02] MEDS ORDERED: SUCCINYLCHOLINE CHLORIDE 200 MG/10 ML VIAL IV ONE (14:09)
[2023-12-02] MEDS ORDERED: LIDOCAINE 2% (PF) 20 MG/ML 5 ML VIAL ONE (14:09)
[2023-12-02] MEDS ORDERED: ONDANSETRON 4 MG/2 ML VIAL ONE (14:09)
[2023-12-02] MEDS ORDERED: PROPOFOL 10 MG/ML 20 ML VIAL IV ONE (14:09)
[2023-12-02] MEDS ORDERED: fentaNYL (PF) 50 MCG/ML 2 ML AMP ONE (14:09)
[2023-12-02] MEDS ORDERED: MIDAZOLAM 2 MG/2 ML VIAL ONE (14:09)
[2023-12-02] MEDS: IV FLUID CONTINUATION 1,000 ML IV ONE ×2 (14:14→14:43)
[2023-12-02] MEDS: IOPAMIDOL-300 50ML BTL INJ ONE (14:42)
[2023-12-02] MEDS: LACTATED RINGERS 1,000 ML IV ONE (14:43)
--- NOTE | 2023-12-02 14:43 | P.PCN ---
Date of Procedure: 12/02/23 Procedure(s) Performed: Brief history: Patient is a 33 year-old pleasant l white male scheduled for an ERCP as part of evaluation of abdominal pain and elevated serum transaminases/jaundice for the last 2 days' duration. Labs revealed bilirubin of 8 and elevated serum transaminases. Ultrasound of the abdomen revealed evidence of gallstones but no biliary ductal dilation. Because of clinical suspicion for CBD stones he scheduled for an ERCP today. Procedure performed: ERCP with biliary sphincterotomy and balloon sweep Preoperative diagnoses: Elevated LFTs/jaundice and severe epigastric pain IV sedation per anesthesia: Procedure: After informed consent was obtained from the patient and after the risks benefits and complications including bleeding perforation and pancreatitis explained in detail the patient was brought into the endoscopy unit. The patient was placed in prone position and IV conscious sedation was administered by anesthesia under continuous monitoring. The Olympus side-viewing duodenoscope was then inserted into the mouth and esophagus intubated without any difficulty. The scope was gradually advanced into the stomach and duodenum. The major papilla was identified without any difficulty. Initial cannulation resulted in opacification of the common bile duct that appeared slightly dilated measuring about 6 mm in diameter with a small fluid faint filling defect in the distal CBD. At this time the catheter was exchanged over a guidewire with a biliary sphincterotomy which was advanced into the common bile duct. A biliary sphincterotomy was performed at 11 o'clock position and was extended to 1 cm. Following this using 11 mm balloon catheter, it was advanced into the proximal CBD gently inflated and withdrawn. No stones were seen exiting the ampulla. This maneuver was repeated 3-4 times. Occlusion cholangiogram was performed. No other filling defects were noted. Pancreatic duct was intentionally not cannulated. Patient tolerated the procedure well. Impression: Slightly dilated common bile duct measuring 6 mm in diameter with a faint filling defect in the distal CBD status post biliary sphincterotomy and balloon sweep but no stone seen exiting the ampulla Pancreatic duct intentionally not cannulated Recommendations: The findings of this examination were discussed with the patient as well as a family. He will be started on clear liquids. Monitor LFTs closely. Continue with antibiotics.
--- NOTE | 2023-12-02 15:26 | P.PN ---
Subjective Progress Note Date: 12/02/23 Patient seen and examined at bedside. States abdominal pain is improved today. Awaiting ERCP. Objective - Vital Signs Vital signs: Vital Signs Temp 98.6 F 12/02/23 13:56 Pulse 72 12/02/23 15:10 Resp 18 12/02/23 15:10 BP 121/68 12/02/23 15:10 Pulse Ox 99 12/02/23 15:10 FiO2 Intake & Output 12/01/23 12/02/23 12/02/23 18:59 06:59 18:59 Intake Total 236 400 Balance 236 400 Intake: IV 400 Oral 236 Other: # Voids 1 1 - Constitutional General appearance: Present: cooperative - Gastrointestinal Gastrointestinal Comment(s): Soft, nontender, nondistended, no rebound, no guarding - Psychiatric Psychiatric: Present: A&O x's 3 - Labs CBC & Chem 7: 12/02/23 02:49 12/02/23 02:49 Labs: Abnormal Lab Results - Last 24 Hours (Table) 12/02/23 Range/Units 02:49 Total Bilirubin 3.2 H (0.3-1.2) mg/dL Conjugated Bilirubin 1.43 H (0.20-0.40) mg/dL Unconjugated Bilirubin 1.77 H (0.20-1.00) mg/dL AST 211 H (14-35) U/L ALT 690 H (10-49) U/L Alkaline Phosphatase 146 H (41-126) U/L Assessment and Plan Plan: 33-year-old male with concern for choledocholithiasis. Bilirubin has decreased today and patient is overall improved. Plan for ERCP today. Based on findings, possibility of robotic cholecystectomy tomorrow.
[2023-12-02] MEDS: MELATONIN 3 MG TABLET PO PRN (23:44)
--- NOTE | 2023-12-03 10:07 | P.PN ---
Subjective Progress Note Date: 12/03/23 12/02/2023 this is a 33-year-old gentleman admitted with right upper quadrant abdominal pain, elevated bilirubin and LFTs , normal lipase with past medical history of gallbladder disease and multiple the medical issues. Ultrasound of gallbladder reported hepatic steatosis, cholelithiasis, CBD within normal limits, mild right hydronephrosis. evaluated by general surgery.jaundiced appearance yesterday with significant increased -T. bili 8.1, conjugated bilirubin 5.65 , AST 460, ALT 856 and alkaline phosphatase 132.Completed HIDA scan reporting obstruction of the common bile duct. Evaluated by GI and patient is scheduled for ERCP today. Cholecystectomy pending completion of ERCP. INR pending.T. bili decreased to 3.2 ,conjugated bilirubin 1.43. Denies abdominal pain, he reports abdominal tenderness. Patient also was evaluated by urology with recommendations noted. Renal function stable. N.p.o., maintained on IV fluid hydration, Zosyn. 12/03/2023 ERCP yesterday reported slightly dilated common bile duct measuring 6 mm in diameter with a faint filling defect in the distal CBD status post biliary sphincterotomy and balloon sweep but no stones seen exiting the ampulla. LFTs pending. N.p.o., scheduled for robotic cholecystectomy today. Denies abdominal pain. Vital signs stable. Objective - Vital Signs Vital signs: Vital Signs Temp 98.3 F 12/03/23 07:00 Pulse 60 12/03/23 07:00 Resp 20 12/03/23 07:00 BP 113/80 12/03/23 07:00 Pulse Ox 97 12/03/23 07:00 FiO2 Intake & Output 12/02/23 12/03/23 12/03/23 18:59 06:59 18:59 Intake Total 836 Balance 836 Intake: IV 600 Oral 236 Other: # Voids 2 - Exam PHYSICAL EXAM: VITAL SIGNS: [As above] GENERAL: Alert and oriented x 3, NAD HEENT: Atraumatic, normocephalic, conjunctivae normal. eyes normal. Clear nonicteric NECK: Supple, no JVD. CARDIOVASCULAR: S1, S2 regular. No murmur RESPIRATION: Unlabored, equal air entry, CTA ABDOMEN: Soft, nondistended,nontender to palpation, positive bowel sounds LEGS: No edema. no swelling NERVOUS SYSTEM: Cranial N 2-12 grossly normal. No focal deficits. Skin: Warm and dry, no rash - Labs CBC & Chem 7: 12/02/23 02:49 12/02/23 02:49 Labs: Abnormal Lab Results - Last 24 Hours (Table) 12/02/23 Range/Units 02:49 Total Bilirubin 3.2 H (0.3-1.2) mg/dL Conjugated Bilirubin 1.43 H (0.20-0.40) mg/dL Unconjugated Bilirubin 1.77 H (0.20-1.00) mg/dL AST 211 H (14-35) U/L ALT 690 H (10-49) U/L Alkaline Phosphatase 146 H (41-126) U/L Assessment and Plan Assessment: Right upper quadrant pain with gallstones,Choledocholelithiasis. Hyperbilirubinemia and elevated LFTs Right kidney hydronephrosis with moderate dilation of the right collecting system with calculus, urology following -reports possible UPJ calculus due to cholelithiasis in a patient with history of chronic UPJ obstruction, history of right pyeloplasty May 2023. 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 T. bili/labs pending. NPO, maintain IV fluid hydration and Zosyn. Robotic cholecystectomy pending. Maintain aggressive pulmonary toileting with incentive spirometer reinforced. The impression and plan of care has been dictated as directed. : I performed a history and examination of this patient, discussed the same with the dictator. I agree with the dictator's note ,documented as a scribe. Any a dditional findings or plans will be noted.
--- NOTE | 2023-12-03 10:59 | P.PN ---
Subjective Progress Note Date: 12/03/23 Principal diagnosis: Right hydronephrosis The patient underwent ERCP yesterday and is feeling much better today. Objective - Vital Signs Vital signs: Vital Signs Temp 98.3 F 12/03/23 07:00 Pulse 60 12/03/23 07:00 Resp 20 12/03/23 07:00 BP 113/80 12/03/23 07:00 Pulse Ox 97 12/03/23 07:00 FiO2 Intake & Output 12/02/23 12/03/23 12/03/23 18:59 06:59 18:59 Intake Total 836 Balance 836 Intake: IV 600 Oral 236 Other: # Voids 2 - Constitutional General appearance: Present: average body habitus, no acute distress - Psychiatric Psychiatric: Present: A&O x's 3 - Labs CBC & Chem 7: 12/02/23 02:49 12/02/23 02:49 Assessment and Plan (1) Hydronephrosis Current Visit: Yes Status: Acute Code(s): N13.30 - UNSPECIFIED HYDRONEPHROSIS SNOMED Code(s): 14740693 Plan: Review of the CT scan shows calcifications at the right UPJ. The patient is urologically stable for discharge. Arrangements have been made for him to undergo cystoscopy with right retrograde pyelogram and possible ureteroscopy on December 09, 2023 as an outpatient. Please notify me if we can be of any further assistance during this hospitalization.
[2023-12-03 11:12] LABS: ALT 415 U/L (4-49); AST 113 U/L (17-59); African American GFR (CKD) >90 (>60 ml/min/1.73 sqM); Albumin 4.4 g/dL (3.5-5.0); Albumin/Globulin Ratio 1.6; Alkaline Phosphatase 96 U/L (38-126); Anion Gap 10 mmol/L; Blood Urea Nitrogen 11 mg/dL (9-20); Calcium 9.9 mg/dL (8.4-10.2); Carbon Dioxide 28 mmol/L (22-30); Chloride 105 mmol/L (98-107); Globulin 2.7 g/dL; Glucose 93 mg/dL (74-99); Non-African American GFR(CKD) >90 (>60 ml/min/1.73 sqM); Potassium 4.5 mmol/L (3.5-5.1); Sodium 143 mmol/L (137-145); Total Bilirubin 2.4 mg/dL (0.2-1.3); Total Protein 7.1 g/dL (6.3-8.2)
--- NOTE | 2023-12-03 12:56 | P.PN ---
Subjective Progress Note Date: 12/03/23 Principal diagnosis: Abdominal pain, elevated LFTs This is a pleasant 33-year-old male with past medical history including gallbladder disease and CVA with a history of anticardiolipin antibody who presented to the emergency department 2 days ago with complaints of right upper quadrant abdominal pain. He states that he has had problems with his gallbladder since March of this year. He states he was supposed to have gallbladder surgery on 11/19/2023 with a surgeon at a [facility] however he canceled the procedure. He started having right upper quadrant abdominal pain again severe nature radiating into the epigastric region. He presented to the hospital gallbladder ultrasound reports hepatic steatosis and cholelithiasis with no CBD dilation. He had a HIDA scan done today that shows likely biliary obstruction as well as significantly increased LFTs and bilirubin. Gastroenterology consulted for possible ERCP. 12/03/2023 Patient seen and examined as a follow-up. Yesterday he underwent ERCP with findings slightly dilated common bile duct status post biliary sphincterectomy and balloon sweep with no seen seen exiting the ampulla. Patient likely had p assed the stone. His LFTs had improved yesterday. LFTs and bilirubin continue to improve, today's labs total bilirubin 2.4 AST 113 ALT 415 alkaline phosphatase 96. Patient states abdominal pain significantly improved. No nausea or vomiting. He has been afebrile. He is scheduled for cholecystectomy today. Objective - Vital Signs Vital signs: Vital Signs Temp 98.3 F 12/03/23 07:00 Pulse 60 12/03/23 07:00 Resp 20 12/03/23 07:00 BP 113/80 12/03/23 07:00 Pulse Ox 97 12/03/23 07:00 FiO2 Intake & Output 12/02/23 12/03/23 12/03/23 18:59 06:59 18:59 Intake Total 836 Balance 836 Intake: IV 600 Oral 236 Other: # Voids 2 - Exam General appearance: The patient is alert, oriented, appears in no acute distress. HET: Head is normocephalic and atraumatic. Conjunctiva pink. Sclera anicteric. Neck: Supple without lymphadenopathy. Abdomen: Soft, nontender, nondistended with bowel sounds. No guarding or rigidity. Extremities: Normal skin color and turgor. No pedal edema Skin: No rashes, no jaundice Neurological: No focal deficits. Alert and oriented. - Labs CBC & Chem 7: 12/02/23 02:49 12/03/23 09:31 Labs: Abnormal Lab Results - Last 24 Hours (Table) 12/03/23 Range/Units 09:31 Total Bilirubin 2.4 H (0.2-1.3) mg/dL AST 113 H (17-59) U/L ALT 415 H (4-49) U/L Assessment and Plan (1) Choledocholithiasis Narrative/Plan: 33-year-old presenting with right upper quadrant abdominal pain with normal LFTs on admission that have significantly increased with total bilirubin now at 8.1 AST 460 ALT 856 and alkaline phosphatase 132 within normal lipase. Imaging has reported Yisel lithiasis he has known gallbladder disease and was scheduled to have cholecystectomy however canceled that. Now presenting with right upper quadrant pain with a abnormal HIDA scan likely secondary to CBD obstruction. Labs and imaging consistent with cholestatic pattern, likely choled ocholithiasis. ERCP performed with slightly dilated CBD status post biliary sphincterectomy and balloon sweep without any stone seen exiting ampulla. Patient had likely already passed the stone. No further workup from gastroenterology. Continue with general surgery recommendations, patient sched uled for cholecystectomy today. Current Visit: Yes Status: Acute Code(s): K80.50 - CALCULUS OF BILE DUCT W/O CHOLANGITIS OR CHOLECYST W/O OBST SNOMED Code(s): 064909104 (2) Hyperbilirubinemia Current Visit: Yes Status: Acute Code(s): E80.6 - OTHER DISORDERS OF BILIRUBIN METABOLISM SNOMED Code(s): 81309505 (3) Elevated LFTs Narrative/Plan: Improving Current Visit: Yes Status: Acute Code(s): R79.89 - OTHER SPECIFIED ABNORMAL FINDINGS OF BLOOD CHEMISTRY SNOMED Code(s): 478790845 (4) Abdominal pain Current Visit: Yes Status: Acute Code(s): R10.9 - UNSPECIFIED ABDOMINAL PAIN SNOMED Code(s): 08903897 (5) Cholelithiasis Narrative/Plan: Scheduled for laparoscopic cholecystectomy today Current Visit: Yes Status: Acute Code(s): K80.20 - CALCULUS OF GALLBLADDER W/O CHOLECYSTITIS W/O OBSTRUCTION SNOMED Code(s): 707364606 Plan: 1. Continue symptomatic and supportive care 2. Keep n.p.o. for scheduled surgery 3. Continue IV antibiotics, defer outpatient to general surgery 4. Patient is status post ERCP with no evidence of stone extraction 5. Continue with recommendations from general surgery 6. Rest of medical management per primary medical team Thank you for this consultation, we will sign off at this time. Dr. Arielle Villegas I agree with the dictator's note, documented as a scribe by [place] Guaman.
[2023-12-03] MEDS: IV FLUID CONTINUATION 1,000 ML IV ONE (14:51)
[2023-12-03 15:17] LABS: Basophils % (A) 1 %; Eosinophils # (A) 0.1 k/uL (0-0.7); Eosinophils % (A) 3 %; HCT 45.5 % (39.0-53.0); HGB 15.5 gm/dL (13.0-17.5); Lymphocytes # (A) 0.9 k/uL (1.0-4.8); Lymphocytes % (A) 21 %; MCH 32.6 pg (25.0-35.0); MCV 95.9 fL (80.0-100.0); Monocytes # (A) 0.2 k/uL (0-1.0); Monocytes % (A) 6 %; Neutrophils # (A) 2.9 k/uL (1.3-7.7); Neutrophils % (A) 69 %; Platelet Count 271 k/uL (150-450); RBC 4.75 m/uL (4.30-5.90); RDW 13.3 % (11.5-15.5); WBC 4.2 k/uL (3.8-10.6)
[2023-12-03] MEDS ORDERED: fentaNYL (PF) 50 MCG/ML 2 ML AMP ONE (16:03)
[2023-12-03] MEDS ORDERED: LIDOCAINE 1% INJ 10MG/ML (20 ML MDV) ONE (16:03)
[2023-12-03] MEDS ORDERED: GLYCOPYRROLATE 0.2 MG/ML 2 ML VIAL ONE (16:03)
[2023-12-03] MEDS ORDERED: MIDAZOLAM 2 MG/2 ML VIAL ONE (16:03)
[2023-12-03] MEDS ORDERED: ROCURONIUM 10 MG/ML (5 ML VIAL) IV ONE (16:03)
[2023-12-03] MEDS ORDERED: ONDANSETRON 4 MG/2 ML VIAL ONE (16:03)
[2023-12-03] MEDS ORDERED: SUCCINYLCHOLINE CHLORIDE 200 MG/10 ML VIAL IV ONE (16:03)
[2023-12-03] MEDS ORDERED: PROPOFOL 10 MG/ML 20 ML VIAL IV ONE (16:03)
[2023-12-03] MEDS ORDERED: DEXAMETHASONE SOD PHOSPHATE 4 MG/ML 1 ML VIAL ONE (16:03)
[2023-12-03] MEDS ORDERED: NEOSTIGMINE 1 MG/ML 10 ML VIAL ONE (16:03)
[2023-12-03] MEDS ORDERED: HEPARIN SODIUM,PORCINE 5,000 UNIT/ML 1 ML VIAL ONE (16:03)
[2023-12-03] MEDS ORDERED: HYDROmorphone (PF) 1 MG/ML ONE (16:03)
[2023-12-03] MEDS: LIDOCAINE 1%-EPI 1:100,000 20 ML VIAL SQ ONE (17:14)
[2023-12-03] MEDS: LACTATED RINGERS 1,000 ML IV ONE (17:14)
--- NOTE | 2023-12-03 17:39 | P.OP ---
Date of Procedure: 12/03/23 Preoperative Diagnosis: Choledocholithiasis Postoperative Diagnosis: Choledocholithiasis Procedure(s) Performed: Robotic Cholecystectomy Anesthesia: MAC Surgeon: Yahir Keith Estimated Blood Loss (ml): 25 Pathology: other (Gallbladder) Condition: stable Disposition: PACU Description of Procedure: The patient was taken to the operating suite and placed in the supine position. Anesthesia was given and the patient was intubated. The patient was prepped and draped in usual sterile manner. A timeout was performed prior to starting the procedure with all in agreement. A #11 was blade was used to make an incision at [place] and a 5 mm Optiview was used to gain access to the abdomen. The patient was positioned. Additional 8 mm robotic ports were placed and the 5 mm trochar used to gain access to the abdomen was replaced with a 12 mm robotic port. The robot was docked and I performed the rest of the procedure from the robotic console. The gallbladder was retracted by the fundus and infundibulum. A hook cautery was used to carefully dissect out both the cystic duct and cystic artery. A critical view of safety was obtained. I could see where both the artery and the duct were entering the gallbladder. The cystic artery was clipped both proximally and distally and divded. It was apparent the cystic duct was dilated and that clips would not make it all the way across. At this point, the cystic duct was divided with a 60 mm Robotic Blue Staple load. The gallbladder was taken off the liver with hook electrocautery. All bleeding was controlled. The gallbladder was placed in a 10 mm endocatch bag and was removed through the incision at [place]. The abdomen was then thoroughly irrigated and again no active bleeding was noted. At this point, the robot was undocked and the ports were removed. The incisions sites had minor bleeding whi ch was controlled with bovie electrocautery. 10 cc of 1% Lidocaine was injected around the incisions. The incisions were closed with #4-0 monocryl. Skin glue was applied. Anesthesia was reversed and patient was sent to the PACU in stable condition.
[2023-12-03] MEDS: HYDROmorphone 0.5 MG/0.5 ML SYRINGE IVP STA (17:59)
[2023-12-03 18:09] VITALS: RESP 16
[2023-12-04] MEDS: HYDROcodone/APAP 10-325MG 1 EACH TAB PO PRN (03:44)
[2023-12-04 07:23] VITALS: BP 114/71; PULSE 77; TEMP 98.6
[2023-12-04 08:50] LABS: Basophils # (A) 0.01 X 10*3/uL (0.00-0.10); Basophils % (A) 0.1 %; Eosinophils # (A) 0.03 X 10*3/uL (0.04-0.35); Eosinophils % (A) 0.3 %; HCT 40.8 % (39.6-50.0); HGB 14.2 g/dL (13.0-17.0); Lymphocytes # (A) 0.98 X 10*3/uL (0.90-5.00); Lymphocytes % (A) 10.3 %; MCH 31.8 pg (27.0-32.0); MCHC 34.8 g/dL (32.0-37.0); MCV 91.3 FL (80.0-97.0); Mean Platelet Volume 9.7 FL (9.5-12.2); Monocytes # (A) 0.55 X 10*3/uL (0.20-1.00); Monocytes % (A) 5.8 %; NRBC Per 100 WBC 0 X 10*3/uL (0.00-0.01); Neutrophils # (A) 7.91 X 10*3/uL (1.80-7.70); Neutrophils % (A) 83.1 %; Platelet Count 266 X 10*3/uL (140-440); RBC 4.47 X 10*6/uL (4.40-5.60); RDW 12.3 % (11.5-14.5); WBC 9.52 X 10*3/uL (4.50-10.00)
--- NOTE | 2023-12-04 09:24 | P.DS ---
Providers Date of admission: 11/29/23 12:24 Expected date of discharge: 12/04/23 Attending physician: Tomy Renner MD Consults: 11/29/23 11:52 Consult Physician Urgent Consulting Provider: Yang Ernandez Consult Reason/Comments: Hydronephrosis, prior surgery Do you want consulting provider notified?: Yes Consult Physician Urgent Consulting Provider: Yahir Keith Consult Reason/Comments: Cholelithiasis, abdominal pain Do you want consulting provider notified?: Yes Primary care physician: Tomy Renner MD Hospital Course: Final Diagnoses: Right upper quadrant pain with gallstones,Choledocholelithiasis.status post robotic cholecystectomy Hyperbilirubinemia and elevated LFTs Right kidney hydronephrosis with moderate dilation of the right collecting system with calculus, urology following -reports possible UPJ calculus due to cholelithiasis in a patient with history of chronic UPJ obstruction, history of right pyeloplasty May 2023. History of CVA with no residual weakness 12/2020 Anticardiolipin antibody positive Morbid obesity, BMI 36 History of marijuana and Adderall use Hospital course: this is a 33-year-old gentleman admitted with right upper quadr ant abdominal pain, elevated bilirubin and LFTs , normal lipase with past medical history of gallbladder disease and multiple the medical issues. Ultrasound of gallbladder reported hepatic steatosis, cholelithiasis, CBD within normal limits, mild right hydronephrosis. evaluated by general surgery.jaundiced appearance yesterday with significant increased -T. bili 8.1, conjugated bilirubin 5.65 , AST 460, ALT 856 and alkaline phosphatase 132.Completed HIDA scan reporting obstruction of the common bile duct. Evaluated by GI and patient is scheduled for ERCP today. Cholecystectomy pending completion of ERCP. INR pending.T. bili decreased to 3.2 ,conjugated bilirubin 1.43. Denies abdominal pain, he reports abdominal tenderness. Patient also was evaluated by urology with recommendations noted. Renal function stable. N.p.o., maintained on IV fluid hydration, Zosyn. 12/03/2023 ERCP yesterday reported slightly dilated common bile duct measuring 6 mm in diameter with a faint filling defect in the distal CBD status post biliary sphincterotomy and balloon sweep but no stones seen exiting the ampulla. LFTs pending. N.p.o., scheduled for robotic cholecystectomy today. Denies abdominal pain. Vital signs stable. status post robotic cholecystectomy, postop day #1. Tolerated procedure well. pain controlled. Tolerating diet with no nausea or vomiting. Passing flatus.Ambulating, tolerating exertion well.patient will be discharged home today in stable condition with guarded prognosis pending a.m. labs, final DC recommendations and clearance per general surgery. The impression and plan of care has been dictated as directed. : I performed a history and examination of this patient, discussed the same with the dictator. I agree with the dictator's note ,documented as a scribe. Any additional findings or plans will be noted. Patient Condition at Discharge: Stable Plan - Discharge Summary Discharge Rx Participant: No New Discharge Prescriptions: No Action Aspirin 81 mg PO DAILY #30 tab Discharge Medication List Aspirin 81 mg PO DAILY #30 tab 01/01/21 [Rx] Follow up Appointment(s)/Referral(s): Yahir Keith DO [Medical Doctor] - 1 Week Tomy Renner MD [Primary Care Provider] - 1 Week ()
[2023-12-04 09:30] LABS: ALT 401 U/L (10-49); AST 132 U/L (14-35); Albumin 4.5 g/dL (3.8-4.9); Albumin/Globulin Ratio 2.05 Ratio (1.60-3.17); Alkaline Phosphatase 109 U/L (41-126); BUN/Creat Ratio 11.56 Ratio (12.00-20.00); Bilirubin, Conjugated 0.59 mg/dL (0.20-0.40); Bilirubin,Unconjugated 0.61 mg/dL (0.20-1.00); Blood Urea Nitrogen 10.4 mg/dL (9.0-27.0); Calcium 9.5 mg/dL (8.7-10.3); Carbon Dioxide 25.1 mmol/L (21.6-31.8); Chloride 101 mmol/L (96-109); Globulin 2.2 g/dL (1.6-3.3); Glucose 113 mg/dL (70-110); Potassium 4.2 mmol/L (3.5-5.5); Sodium 138 mmol/L (135-145); Total Bilirubin 1.2 mg/dL (0.3-1.2); Total Protein 6.7 g/dL (6.2-8.2)
--- NOTE | 2023-12-22 12:29 | CDI ---
Documentation Clarification Form Date: 12/22/2023 12:21:14 PM From: Venus Peck Phone: Admit Date: 11/29/2023 12:24:00 PM Patient Name: Tomy Wharton Visit Number: [id number] Discharge Date: 12/04/2023 12:50:00 PM ATTENTION: The Clinical Documentation Specialists (CDI) and [facility] Coding Staff appreciate your assistance in clarifying documentation. Please respond to the clarification below the line at the bottom and electronically sign. The CDI & [facility] Coding staff will review the response and follow-up if needed. Please note: Queries are made part of the Legal Health Record. If you have any questions, please contact the author of this message via ITS. Doctor/Provider: Tomy Renner The final diagnosis of the pathology report states Acute and chronic cholecystitis with cholelithiasis. Coding guidelines do not allow coding professionals to code based on pathology results; therefore, clarification is requested. History/risk factors: Fatty liver, Morbid obesity, Anticardiolipin antibody Clinical Indicators: Patient admitted for abdominal pain, found to have Cholelithiasis and underwent Lap Cholecystectomy. Path report of gallbladder states "Acute and chronic cholecystitis with cholelithiasis." Treatment: ERCP with bile duct dilatation; Robotic assisted Cholecystectomy Please clarify if you agree with the pathology report diagnosis of Acute and chronic cholecystitis with cholelithiasis: [ X] Yes [ ] No [ ] Other (please specify) [ ] Unable to determine MTDD
--- NOTE | 2023-12-25 10:36 | FL ---
EXAMINATION TYPE: FL ERCP DATE OF EXAM: 12/02/2023 2:53 PM COMPARISON: Pre Operative Images if available both CT/MRI or plain film CLINICAL INDICATION: Male, 33 years old with history of ERCP; TECHNIQUE: FL ERCP, multiple fluoroscopic images provided for procedure. Total fluoroscopy time: 39 seconds Total submitted images to PACS: 3 DAP: 9.4422 mGym2 Gycm2 uGym2 cGycm2 or equivalent. FINDINGS: Fluoroscopic images during endoscopic retrograde cholangiopancreatography demonstrated no evidence fo r extravasation of contrast. Mild dilation of the extra hepatic biliary system without evidence of fi lling defect to suggest choledocholithiasis. IMPRESSION: 1. No evidence for intraoperative complication. 2. Please see the operative/procedural note for further details. [facility], , 12/25/2023 10:33 AM
== END 2023-12-04 12:50 | disposition home or self-care (01) | DRG 418 ==
LOC: EC 06:52 → 6NMEDSUR 12:23 → OBSVTOIN 12:24 → 6NMEDSUR 16:12
PROVIDERS: ADMIT Family Medicine; ATTEND Family Medicine
PROC: BF101ZZ Fluoroscopy of Bile Ducts using Low Osmolar Contrast (ICD-10-PCS; 2023-12-02)
PROC: 0F798ZZ Dilation of Common Bile Duct, Via Natural or Artificial Opening Endoscopic (ICD-10-PCS; 2023-12-02)
PROC: 8E0W4CZ Robotic Assisted Procedure of Trunk Region, Percutaneous Endoscopic Approach (ICD-10-PCS; principal; 2023-12-03 09:25)
PROC: 0FT44ZZ Resection of Gallbladder, Percutaneous Endoscopic Approach (ICD-10-PCS; principal; 2023-12-03 09:25)
DX: K80.13 Calculus of gallbladder with acute and chronic cholecystitis with obstruction (principal); N13.2 Hydronephrosis with renal and ureteral calculous obstruction; K76.0 Fatty (change of) liver, not elsewhere classified; E66.01 Morbid (severe) obesity due to excess calories; Z68.36 Body mass index [BMI] 36.0-36.9, adult; R76.0 Raised antibody titer; F15.91 Other stimulant use, unspecified, in remission; Z79.82 Long term (current) use of aspirin; Z86.73 Personal history of transient ischemic attack (TIA), and cerebral infarction without residual deficits; Z87.442 Personal history of urinary calculi
CPT/HCPCS: 36415; 43262; 74018; 74177; 74330; 76705; 78226; 80048; 80053; 80076; 81003; 83605; 83690; 85025; 85610; 88304; 96361; 96374; 96375; 96376; 99285

== ENCOUNTER 2023-12-09 10:41 | Day surgery (SDC) | payer BC ==
[~2023-12-09 10:41] MED LIST changes: -FUROSEMIDE 10 MG/ML 2 ML VIAL IVP PRN; +HYDROmorphone 0.5 MG/0.5 ML SYRINGE IVP PRN; +LIDOCAINE 1% (10MG/ML) FOR IV START INTRADERMA PRN
--- NOTE | 2023-12-09 11:12 | XR ---
EXAMINATION TYPE: XR KUB DATE OF EXAM: 12/09/2023 COMPARISON: KUB 11/29/2023, CT abdomen and pelvis 11/29/2023 HISTORY: Preop kidney stones TECHNIQUE: Single supine KUB image of the abdomen is obtained FINDINGS: Small bowel demonstrates no evidence for dilatation or air fluid levels. Gas and fecal material is seen in non-distended colon. No definitive renal or ureteral calculi identified. Stable left pelvic phlebolith. The lung bases are clear. Chronic elevation of the right hemidiaphragm. The osseous structures are intact. IMPRESSION: Overall nonobstructive bowel gas pattern. No definitive renal calculi identified. [facility], , 12/09/2023 11:09 AM
[2023-12-09] MEDS: IV FLUID CONTINUATION 1,000 ML IV ONE ×2 (11:24→16:12)
[2023-12-09] MEDS: DEXAMETHASONE SOD PHOSPHATE 4 MG/ML 1 ML VIAL IV ONE (11:37)
[2023-12-09] MEDS: ONDANSETRON 4 MG/2 ML VIAL IVP ONE (11:38)
[2023-12-09] MEDS: LACTATED RINGERS 1,000 ML IV SCH (11:39)
[2023-12-09] MEDS: MIDAZOLAM 2 MG/2 ML VIAL IV PRN (12:40)
[2023-12-09] MEDS: ceFAZolin 3 GM in SODIUM CHLORIDE 0.9% 100 ML IVPB PRN (13:56)
--- NOTE | 2023-12-09 13:59 | P.HPIHPCON ---
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 Presented to the hospital last week with intractable right upper quadrant abdominal pain was diagnosed with acute cholecystitis subsequently underwent a laparoscopic cholecystectomy, CT imaging at that time showed evidence of right- sided hydronephrosis. Discussed with him imaging did show right-sided hydronephrosis and evidence of calcification at the UPJ versus a renal stone. I discussed with him hydronephrosis post pyeloplasty is a common thing that is seen, but given the calcification at the UPJ versus a possible stone I do recommend proceeding with a retrograde pyelogram with possible ureteroscopy to further evaluate. Discussed with him that I do see a stone that we will proceed with holmium laser lithotripsy. Risk benefit and rationale of surgery was discussed with him in detail. Aware of the risk which includes but not limited to bleeding, infection, injury to the ureter. Discussed with him also potential needing additional procedures Consent for Procedure: I have explained the operation/procedure to the patient, including the risks, benefits, side effects, alternative therapies (including not receiving the proposed treatment or service), the likelihood of the patient achieving his/her goals, and potential recuperation problems for the procedure/sedation/analgesia, as well as any blood products, if indicated. I also explained to the patient the risks, benefits and side effects of the alternatives, as well as the risks related to not receiving the proposed procedure, care, treatment, or services. 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, cholelithiasis ,kidney stones History of Any Multi-Drug Resistant Organisms: None Reported Past Surgical History: Cholecystectomy, Joint Replacement Additional Past Surgical History / Comment(s): KEON, two vessels to kidney and had surgery to move ureter, arthscopy to knee Past Anesthesia/Blood Transfusion Reactions: No Reported Reaction Smoking Status: Never smoker - Past Family History Mother Family Medical History: No Reported History Family Family Medical History: CVA/TIA Medications and Allergies Home Medications Medication Instructions Recorded Confirmed Type Aspirin 81 mg PO DAILY #30 tab 01/01/21 12/09/23 Rx Allergies Allergy/AdvReac Type Severity Reaction Status Date / Time No Known Allergies Allergy Verified 12/09/23 11:20 Surgical - Exam Vital Signs Temp Pulse Resp BP Pulse Ox 98.3 F 92 16 124/80 98 12/09/23 11:31 12/09/23 11:31 12/09/23 11:31 12/09/23 11:31 12/09/23 11:31 - General no distress, no pain - Eyes normal ocular movement, no pale - ENT normal nares, normal mucosa - Respiratory normal expansion, normal respiratory effort - Abdomen Abdomen: soft, non tender Assessment and Plan Assessment: OR for cystoscopy, right retrograde pyelogram, ureteroscopy possible holmium laser lithotripsy and stent insertion
[2023-12-09] MEDS: IOPAMIDOL-370 50ML BTL MISCELLANE ONE (14:19)
[2023-12-09] MEDS ORDERED: LIDOCAINE 1% INJ 10MG/ML (20 ML MDV) ONE (15:23)
[2023-12-09] MEDS ORDERED: fentaNYL (PF) 50 MCG/ML 2 ML AMP ONE (15:23)
[2023-12-09] MEDS ORDERED: MIDAZOLAM 2 MG/2 ML VIAL ONE (15:23)
[2023-12-09] MEDS ORDERED: PROPOFOL 10 MG/ML 20 ML VIAL IV ONE (15:23)
[2023-12-09] MEDS ORDERED: ePHEDrine 50 MG/ML 1 ML VIAL ONE (15:23)
[2023-12-09 15:25] VITALS: TEMP 97.8
--- NOTE | 2023-12-09 15:46 | P.OP ---
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 Presented to the hospital last week with intractable right upper quadrant abdominal pain was diagnosed with acute cholecystitis subsequently underwent a laparoscopic cholecystectomy, CT imaging at that time showed evidence of right- sided hydronephrosis. Discussed with him imaging did show right-sided hydronephrosis and evidence of calcification at the UPJ versus a renal stone. I discussed with him hydronephrosis post pyeloplasty is a common thing that is seen, but given the calcification at the UPJ versus a possible stone I do recommend proceeding with a retrograde pyelogram with possible ureteroscopy to further evaluate. Discussed with him that I do see a stone that we will proceed with holmium laser lithotripsy. Risk benefit and rationale of surgery was discussed with him in detail. Aware of the risk which includes but not limited to bleeding, infection, injury to the ureter. Discussed with him also potential needing additional procedures Operative Findings: Sutures circumferential right calcification at the UPJ, with a small renal stone at the UPJ Description of Procedure: Patient brought to the operating room, general anesthesia was induced. He was prepped and draped in sterile fashion placed in a dorsolithotomy position. Cystoscopy through the 21 [place] sheath was inserted per urethra, cystoscopy was performed showed no abnormality within the bladder. Attention was then carried to the right ureter orifice which was intubated with an open-ended catheter, retrograde pyelogram was performed on that side which showed no abnormality along the course of the ureter, at the UPJ there was slight narrowing with a small filling defect right at the level of the UPJ with hydronephrosis. At this time a wire was advanced through the catheter and the catheter was removed with the wire in place. Next under fluoroscopy and [address]3 [place] access sheath was passed over the wire into the proximal ureter. Next a flexible ureteroscope was inserted through the access sheath, at this point on ureteroscopy there was circumferential calcification at the UPJ, with a small stone right at the UPJ, I was unable to pass the ureteroscope past the area of calcification and into the kidney, the holmium laser the area was densely fragmented, at this point I was able to advance the scope past that area complete renoscopy was performed showed no abnormality within the kidney, UPJ was patent but was obstructed by the stone and slightly by the calcification. Using the holmium laser the stone was dusted, attention was then carried to the circumferential calcification which was further fragmented using the holmium laser, at this point any sizable fragments were removed using the stone basket. Repeat renoscopy showed no injury to the UPJ and the UPJ was completely patent and there was no evidence of ureteral perforation, at this point the size of the UPJ was greater than 12 [place], at this point pullback ureteroscopy was performed showed no injury to the ureter or any ureteral stones, as ureteroscope was withdrawn a sensor wire was advanced through. Next a ureteral stent was passed over the wire, the proximal curl visualized on fluoroscopy and the distal curl which was visualized using cystoscope. The bladder was emptied at the end of the case. Patient tolerated procedure was taken to recovery in stable condition, he will follow-up for a cystoscopy stent removal in 3 to 4 weeks
[2023-12-09 15:47] VITALS: RESP 16
[2023-12-09] MEDS: KETOROLAC 15 MG/ML 1 ML VIAL IVP STA (16:08)
[2023-12-09 16:28] VITALS: BP 125/82; PULSE 91
--- NOTE | 2023-12-25 10:36 | FL ---
EXAMINATION TYPE: FL guidance operating room DATE OF EXAM: 12/09/2023 3:17 PM COMPARISON: Pre Operative Images if available both CT/MRI or plain film CLINICAL INDICATION: Male, 33 years old with history of N13.30 HYDRONEPHROSIS; TECHNIQUE: FL guidance operating room, multiple fluoroscopic images provided for procedure. Total fluoroscopy time: 19.6 seconds Total submitted images to PACS: 3 DAP: 4.1582 mGym2 Gycm2 uGym2 cGycm2 or equivalent. FINDINGS: Multiple intraoperative fluoroscopic images were taken resulting in ureteral stent placement with sup erior pigtail in appropriate position projecting over the renal pelvis. No immediate intraoperative c omplication. Multilevel degeneration changes throughout the spine. IMPRESSION: 1. No evidence for intraoperative complication. 2. Please see the operative/procedural note for further details. [facility], , 12/25/2023 10:33 AM
== END 2023-12-09 17:04 | disposition home or self-care (01) ==
LOC: OR 10:41
PROVIDERS: ATTEND Urology
DX: N13.2 Hydronephrosis with renal and ureteral calculous obstruction (principal); Z79.82 Long term (current) use of aspirin; Z86.73 Personal history of transient ischemic attack (TIA), and cerebral infarction without residual deficits; Z87.442 Personal history of urinary calculi
CPT/HCPCS: 74018; 82365

== ENCOUNTER → 2024-04-05 | Outpatient (CLI) | payer BC ==
[~2024-04-05] MED LIST changes: +FUROSEMIDE 10 MG/ML 2 ML VIAL IV ONE; -HYDROmorphone 0.5 MG/0.5 ML SYRINGE IVP PRN; -LIDOCAINE 1% (10MG/ML) FOR IV START INTRADERMA PRN
--- NOTE | 2024-04-05 14:56 | NM ---
INDICATION: Patient age:Male; 33 years old; Reason for study: N13.30 UNSPECIFIED HYDRONEPHROSIS; PHH. COMPARISON: Nuclear medicine Lasix renogram 04/29/2023, CT scan of pelvis 11/29/2023, 03/30/2023 TECHNIQUE: Following administration of 10.0 mCi Tc 99m MAG3 with 20mg Lasix. Immediate images post i njection. FINDINGS: Split renal function for the kidneys (uptake %): 40.4 right and 59.6 left which is within normal limits. (Normal is within 10% of each other) Max renal flow left: 3.5 minutes. Max renal flow right: 8.5 minutes. Satisfactory accumulation of radiotracer within both renal collecting systems. After the administrati on of Lasix, there is prompt excretion from the left kidney. The right kidney demonstrates continued elevated radiotracer count after Lasix injection. There is excretion curve is consistent with obstruc tion. T 1/2 left: 15.4 minutes. T 1/2 right: NA minutes. IMPRESSION: Renograms most consistent with obstruction on the right. No evidence for left renal obstruction. [facility], , 04/05/2024 2:54 PM
== END | disposition home or self-care (01) ==
LOC: RADNMMAIN 12:54
PROVIDERS: ATTEND Urology
DX: N13.30 Unspecified hydronephrosis (principal)
CPT/HCPCS: 78708; A9562

== ENCOUNTER → 2024-05-14 | Day surgery (SDC) | payer BC ==
[2024-05-12 08:29] VITALS: BMI 38.0
[~2024-05-14] MED LIST changes: -FUROSEMIDE 10 MG/ML 2 ML VIAL IV ONE; +IOPAMIDOL-370 100ML BTL MISCELLANE ONE; +LIDOCAINE 1% INJ 10MG/ML (20 ML MDV) ONE; +LIDOCAINE 4% LTA KIT (4 ML) TOPICAL ONE; +MIDAZOLAM 2 MG/2 ML VIAL ONE; +PROPOFOL 10 MG/ML 20 ML VIAL IV ONE; +SCOPOLAMINE 1 MG/72 HR PATCH TRANSDERM ONE; +SUCCINYLCHOLINE CHLORIDE 200 MG/10 ML VIAL IV ONE; +fentaNYL (PF) 50 MCG/ML 2 ML AMP ONE
--- NOTE | 2024-05-14 08:45 | P.HPIHPCON ---
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 Underwent a right sided robotic pyeloplasty in May 2023. Patient developed recurrent hydronephrosis and a right sided renal stone requiring right-sided ureteroscopy with holmium laser leg laser endopyelotomy of the UPJ in November. Had a follow-up Lasix renogram which showed recurrent obstruction. Discussed with him at this time I recommend proceeding with right- sided ureteroscopy with retrograde pyelogram to evaluate. Discussed if obstruction has reoccurred his options would be a redo pyeloplasty versus a reattempt endopyelotomy. Discussed with him lower success rate of an endopyelotomy. At this point he would like to proceed with endopyelotomy, aware of the risk which include but not limited to bleeding, infection, injury to the ureter. I discussed with him if stone is present then we will proceed with holmium laser lithotripsy. He understood all the risk and agreed to proceed with right-sided ureteroscopy, endopyelotomy holmium laser lithotripsy, retrograde pyelogram, and stent insertion Consent for Procedure: I have explained the operation/procedure to the patient, including the risks, benefits, side effects, alternative therapies (including not receiving the proposed treatment or service), the likelihood of the patient achieving his/her goals, and potential recuperation problems for the procedure/sedation/analgesia, as well as any blood products, if indicated. I also explained to the patient the risks, benefits and side effects of the alternatives, as well as the risks related to not receiving the proposed procedure, care, treatment, or services. 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, cholelithiasis ,kidney stones History of Any Multi-Drug Resistant Organisms: None Reported Past Surgical History: Cholecystectomy, Orthopedic Surgery Additional Past Surgical History / Comment(s): KEON, two vessels to kidney and h ad surgery to move ureter, arthscopy to right knee Past Anesthesia/Blood Transfusion Reactions: No Reported Reaction Smoking Status: Never smoker - Past Family History Mother Family Medical History: No Reported History Family Family Medical History: CVA/TIA Medications and Allergies Home Medications Medication Instructions Recorded Confirmed Type Aspirin 81 mg PO DAILY #30 tab 01/01/21 05/12/24 Rx Allergies Allergy/AdvReac Type Severity Reaction Status Date / Time No Known Allergies Allergy Verified 05/12/24 08:21 Surgical - Exam - General no distress, no pain - Eyes normal ocular movement, no pale - ENT normal nares, normal mucosa - Respiratory normal expansion, normal respiratory effort - Abdomen Abdomen: soft, non tender - Psychiatric oriented to time, oriented to person, oriented to place Assessment and Plan Assessment: right-sided ureteroscopy, endopyelotomy holmium laser lithotripsy, retrograde pyelogram, and stent insertion
[2024-05-14] MEDS: IV FLUID CONTINUATION 1,000 ML IV ONE (09:17)
[2024-05-14] MEDS: DEXAMETHASONE SOD PHOSPHATE 4 MG/ML 1 ML VIAL IV ONE (09:33)
[2024-05-14] MEDS: ONDANSETRON 4 MG/2 ML VIAL IVP ONE (09:34)
[2024-05-14] MEDS: LACTATED RINGERS 1,000 ML IV SCH (09:34)
[2024-05-14 09:36] VITALS: TEMP 98
[2024-05-14] MEDS: MIDAZOLAM 2 MG/2 ML VIAL IV PRN (09:40)
[2024-05-14] MEDS: ceFAZolin 3 GM in SODIUM CHLORIDE 0.9% 100 ML IVPB PRN (10:14)
[2024-05-14] MEDS: IOPAMIDOL-370 50ML BTL MISCELLANE ONE (10:45)
--- NOTE | 2024-05-14 11:21 | FL ---
EXAMINATION TYPE: FL guidance operating room Intraoperative/procedural fluoroscopic services were pro vided. CLINICAL INDICATION:Male, 33 years old with history of N20.0 N13.30 RENAL STONE HYDRONEPHROSIS; , PHH FINDINGS: Single fluoroscopic images demonstrates a right ureteral stent. No imaging evidence for complication. Total fluoroscopy time is 10.9 seconds. DAP: 0.59139 Gycm2 uGym2 Please see the operative/procedural note for further details. [facility], , 05/14/2024 11:18 AM
--- NOTE | 2024-05-14 11:30 | P.OP ---
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 Underwent a right sided robotic pyeloplasty in May 2023. Patient developed recurrent hydronephrosis and a right sided renal stone requiring right-sided ureteroscopy with holmium laser leg laser endopyelotomy of the UPJ in November. Had a follow-up Lasix renogram which showed recurrent obstruction. Discussed with him at this time I recommend proceeding with right- sided ureteroscopy with retrograde pyelogram to evaluate. Discussed if obstruction has reoccurred his options would be a redo pyeloplasty versus a reattempt endopyelotomy. Discussed with him lower success rate of an endopyelotomy. At this point he would like to proceed with endopyelotomy, aware of the risk which include but not limited to bleeding, infection, injury to the ureter. I discussed with him if stone is present then we will proceed with holmium laser lithotripsy. He understood all the risk and agreed to proceed with right-sided ureteroscopy, endopyelotomy holmium laser lithotripsy, retrograde pyelogram, and stent insertion Operative Findings: Narrowing of the right UPJ calcification along the anterior aspect of the UPJ Description of Procedure: Patient brought to the operating room, general anesthesia was induced. He was prepped and draped in sterile fashion placed in dorsolithotomy position. Cystoscopy fitted through the 21 Scottish sheath was inserted per urethra, cystoscopy was performed showed no abnormality within the bladder. Attention was then carried to the right ureteral orifice. The right ureteral orifice was intubated with a 6 Scottish open-ended catheter, retrograde pyelogram was performed on that side which showed no filling defect along the course of the ureter, there was narrowing at the UPJ. This time a sensor wire was advanced through the catheter and up into the kidney, the catheter was removed with the wire in place. Next an 1113 Scottish access sheath was passed over the wire into the proximal ureter. The flexible scope was inserted through the access sheath, at this point there was a narrowing at the UPJ was unable to pass the scope past it. At this time the sensor wire was advanced through the scope and the scope was removed with the wire in place. Next a 15 Scottish balloon dilator was passed over the wire, and the UPJ was dilated under fluoroscopy to 15 Scottish. At this time the flexible ureteroscope was reinserted through the access sheath, I was able to advance the scope, complete renoscopy was performed showed no abnormality within the kidney. Of note there was calcification of the UPJ along the anterior aspect of it. Using the holmium laser the calcifications were fragmented. At this time the opening of the UPJ was further incised using the laser along the posterior aspect of the UPJ , I incised using the holmium laser until fat was encountered. At this time I was able to advance the scope easily into the kidney and the size of the UPJ was greater than 15 Scottish in diameter. At this time a sensor wire was advanced through the ureteroscope and the ureteroscope was withdrawn with the wire in place. Next a ureteral stent was passed over the wire, the proximal curl was was visualized on fluoroscopy and the distal curl was realized in the cystoscope. The patient was awakened from anesthesia and taken to recovery in stable condition. He we will follow-up in 4 weeks for cystoscopy stent removal
[2024-05-14] MEDS: HYDROmorphone 0.5 MG/0.5 ML SYRINGE IVP PRN (12:09)
[2024-05-14] MEDS: KETOROLAC 15 MG/ML 1 ML VIAL IVP STA (12:42)
[2024-05-14 13:06] VITALS: RESP 16
[2024-05-14 14:08] VITALS: BP 128/85; PULSE 86
== END | disposition home or self-care (01) ==
LOC: OR 08:54
PROVIDERS: ATTEND Urology
DX: N13.2 Hydronephrosis with renal and ureteral calculous obstruction (principal); Z86.73 Personal history of transient ischemic attack (TIA), and cerebral infarction without residual deficits; Z87.442 Personal history of urinary calculi
CPT/HCPCS: 52356; J2250; J1100; J0690; J2405; J1885; J1171

== ENCOUNTER → 2024-07-27 | Outpatient (CLI) | payer BC ==
--- NOTE | 2024-07-27 21:46 | CT ---
EXAMINATION TYPE: CT abdomen pelvis w con DATE OF EXAM: 07/27/2024 6:53 PM COMPARISON: 11/29/2023 CLINICAL INDICATION: Male, 34 years old with history of R10.31 RLQ Pain, RIGHT TESTICLE SWOLLEN X 2 W EEKS, RIGHT URETER SX 2 YRS AGO, STROKE IN 2019 TECHNIQUE: Axial images were obtained from above the diaphragm to the pubic rami in the axial plane a t 5 mm thick sections. Reconstructed images are reviewed on the computer in the coronal plane. CONTRAST: 100 ml mL of Isovue 300. Study performed with Oral Contrast DLP: 2041.40 mGycm, Automated exposure control for dose reduction was used. FINDINGS: Limited CT sections are obtained the lung bases. The lung bases are clear. CT ABDOMEN: Liver: Mild fatty infiltration of liver is present. Spleen: Normal Pancreas: Normal Adrenal glands: The adrenal glands are normal. Gallbladder: Surgically absent Kidneys: No masses are evident. No hydronephrosis is evident. There are large peripelvic cysts on the right. On delayed images these are better visualized. This appears stable from comparison Delayed i mages were obtained through the kidneys, which remain unremarkable. Aorta: Vascular calcification is within the aorta. Inferior vena cava: Normal. CT PELVIS: Loops of bowel within the abdomen and pelvis are normal. There are loops of bowel which are incom pletely distended or lack oral contrast limiting their evaluation. Appendix: Not clearly identified. There is a short small segment which could be a normal segment of a ppendix.. Contrast is within the ascending colon and at the terminal ileum although incompletely opac ifying the cecum. No suspicious dilated tubular structure or inflammatory changes evident. Urinary bladder: Normal. Genitourinary structures: Prostate appears normal. No suspicious abnormalities to account for right t esticular swelling. Testicle is out of the [id number]. Ultrasound could be performed if additional evaluation would be of benefit. Osseous structures: No suspicious lytic or sclerotic lesions. IMPRESSION: 1. Stable Right peripelvic cysts. 2. No suspicious abnormality to account for right testicular swelling. 3. No definitive etiology to account for right lower quadrant pain. Appendix is likely incompletely v isualized. Clinical management of any suspected appendicitis is recommended [facility], Workstation: [facility], 07/27/2024 9:43 PM
== END | disposition home or self-care (01) ==
LOC: RADCTMAIN 16:46
PROVIDERS: ATTEND Family Medicine
DX: N28.1 Cyst of kidney, acquired (principal)
CPT/HCPCS: 74177; Q9967